=== PATIENT | male | born 1965 | race Caucasian/White ===

== ENCOUNTER 2018-05-25 10:39 | Inpatient (IN) ==
--- NOTE | 2018-05-25 07:34 | Anesthesia Evaluation PreOp ---
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 History: Other (anxiety/depression, substance abuse, chronic pain) Other Medical History: Denies Any Significant HX Anesthesia History: No Prior Anesthetic Complications, Past Anesthesia (B/L shoulder, c-fusion, varicocelectomy) Alcohol Use: occasionally Drug use: marijuana (daily), prescription drug abuse Medications and Allergies Gabapentin [Neurontin] 600 mg PO HS 05/07/16 [History] Gabapentin [Neurontin] 600 mg PO 05/25/18 [History] Nabumetone [Relafen] 05/25/18 [History] Omeprazole [PriLOSEC] 05/25/18 [History] 3 Allergy/AdvReac Type Severity Reaction Status Date / Time No Known Allergies Allergy Verified 05/25/18 11:33 - Meds/Allergy Pre-op Review Medications Reviewed: Yes Allergies Reviewed: Yes Beta Blockers on Current Med List: No Anesthesia Results - Labs Laboratory Tests 05/22/18 12:30 Hgb 14.0 Hct 39.1 Plt Count 195 - Imaging EKG: report reviewed (SINUS RHYTHM wnl) Additional studies: sleep study: IMPRESSION: 1. No primary sleep pathology identified. 2. Few respiratory events noted, not clinically significant. 3. Normal sleep efficiency. 4. Shortened sleep onset latency with prolonged REM sleep latency. Anesthesia Exam Selected Entries 05/25/18 11:04 Temperature 98.7 F Pulse Rate 101 Respiratory Rate 18 Blood Pressure 137/91 O2 Sat by Pulse Oximetry 97 Weight: 79kg NPO (# of Hours): 8 - HEENT Pupil (Motor): EOMI Mallampati: II Teeth: Normal Oral Opening: Greater than 3 - GRANULAR OPERATOR LOC: Oriented GRANULAR OPERATOR Motor: Normal RUE, Normal LUE, Normal RLE, Normal LLE, Normal Face GRANULAR OPERATOR Sensory: Normal: RUE, LUE, RLE, LLE, Face - Cardiac Rhythm: Regular Murmur: None - Pulmonary Breath Sounds: bilateral Clear Respiratory Effort: Symmetrical Anesthesia Assess/Plan ASA Score: 3 Modified [place] Scale for Level of Consciousness: Cooperative, oriented, and tranquil Anesthetic Plan: General Monitoring Plan: Standard Monitors Recovery Plan: PACU (agrees to GA)
[2018-05-25] MEDS ORDERED: Albuterol 2.5 MG/3 ML NEBULIZER IH ONE (10:55)
[2018-05-25] MEDS ORDERED: CeFAZolin Syr 2,000MG/20 ML 2,000 MG/20 ML SYRINGE IVPB ONE (10:55)
[2018-05-25] MEDS ORDERED: Albuterol 2.5 MG/3 ML NEBULIZER ONE (10:59)
[2018-05-25] MEDS ORDERED: Ringers Solution, Lactated 1,000 ML IVC SCH (11:00)
--- NOTE | 2018-05-25 11:52 | History & Physical Report ---
Date of Encounter: 05/25/18 Time of Encounter: 11:50 24 Hour HP Update - Instructions Instructions: If the History and Physical is less than 30 days old and was completed prior to A.M. admission and or procedure and has NOT been updated on calendar day of procedure please complete this update prior to performing procedure. - Update Patient reports changes in Medical Condition: No Changes in examination, assessment, or condition: No Changes in Medication: No Preop tests/diagnostics Reviewed: Yes Surgery Remains Indicated: Yes Consent for Planned Operative Procedure(s) Verified: Yes - Pre-Operative Checklist Preoperative Checklist Indicated: Yes Prophylactic Antibiotic Ordered: Yes Home Medications Include Beta Brianna: No Is VTE Prophylaxis Indicated?: Yes
[2018-05-25] MEDS ORDERED: Acetaminophen IV 1,000 MG/100 ML INFUS..BTL ONE (12:13)
[2018-05-25] MEDS ORDERED: *HR* Midazolam HCl 2 MG/2 ML VIAL ONE ×3 (12:25→13:14)
[2018-05-25] MEDS ORDERED: CefOXitin 1,000 MG VIAL ONE ×2 (12:26→12:30)
[2018-05-25] MEDS ORDERED: *HR* PHENYLEPHRINE 1,000 MCG/10 ML SYRINGE IVP ONE (13:06)
[2018-05-25] MEDS ORDERED: Neostigmine Methylsulfate 3 MG/3 ML SYRINGE ONE (13:11)
[2018-05-25] MEDS ORDERED: *HR* FentaNYL (PF) 100 MCG/2 ML VIAL ONE ×2 (13:14→14:06)
[2018-05-25] MEDS ORDERED: *HR* Propofol 200 MG/20 ML VIAL IVP ONE (13:14)
[2018-05-25] MEDS ORDERED: Dexamethasone 4 MG/ML VIAL ONE (13:14)
[2018-05-25] MEDS ORDERED: *HR* Rocuronium Bromide 50 MG/5 ML VIAL ONE (13:14)
[2018-05-25] MEDS ORDERED: Lidocaine -MPF 2% 2 ML VIAL ONE (13:14)
[2018-05-25] MEDS ORDERED: Ondansetron 4 MG/2 ML VIAL ONE (13:14)
[2018-05-25] MEDS ORDERED: Lidocaine -MPF 4% 5 ML AMPUL ONE (13:14)
[2018-05-25] MEDS ORDERED: Esmolol 100 MG/10 ML VIAL IVP ONE (13:14)
[2018-05-25] MEDS ORDERED: *HR* Phenylephrine 10 MG/ML VIAL ONE (13:22)
[2018-05-25] MEDS ORDERED: *HR* Promethazine 25 MG/ML VIAL IVP PRN (13:24)
[2018-05-25] MEDS ORDERED: *HR* OxyCODONE Immed Rel 5 MG TABLET PO PRN (13:24)
[2018-05-25] MEDS ORDERED: *HR* Labetalol 20 MG/4 ML SYRINGE IVP PRN (13:24)
--- NOTE | 2018-05-25 14:18 | Operative Note ---
Date of procedure: 05/25/18 Pre-op diagnosis: Hiatal hernia and reflux esophagitis Post-op diagnosis: same Procedure: Laparoscopic Merissa fundoplication and hiatal hernia repair Anesthesia: CATHERINE Surgeon: Beau Arnold Was there an assistant warehouse manager present: Yes Piece Work Inspector: Nicole Mckeon Estimated blood loss (cc): 10 Specimen: none Condition: stable Disposition: PACU Procedure in Detail: After informed consent the patients taking major operative suite supine position and given general endotracheal the abdomen is prepped and draped in sterile fashion utilizing ChloraPrep standard draping techniques. The patient was placed in timeout was taken and the patient is identified. Made an incision above the umbilicus and dissected down the level of fascia. 2-0 Vicryl traction stitches were placed. The abdomen was entered visually. I placed a Houser trocar. The abdomen was insufflated to 15 mmHg pressure CO2. I placed a 12 trocar in the right flank. A Retractor was placed under the left lobe of liver. This was held in place with a retractor clamp. 11 trochars placed in the right subxiphoid and a 5 mm trocar left subxiphoid and a 11 trocar in the left subcostal area. The stomach was grasped and retracted downward the left. Using a lighted bougie to assist in the dissection I was able to accurately identify the right and left crura of the diaphragm and the esophagus. The lesser omentum was divided. The stomach was then retracted downward and to the right. I divided the short gastrics between the cardia and the spleen using 10 mm clips and Harmonic scalpel. This gave complete mobilization of cardia of the stomach. I was able to identify the left crura from the left side. I then placed a [place] drain around the gastroesophageal junction and performed hiatal hernia repair with 3 stitches of 0 Ethibond this gave an excellent technical result. Tension on the esophagus. The cardia was then brought behind the gastroesophageal junction and Merissa fundoplication was created with 3 stitches of 0 Ethibond. This gave an excellent technical result. The bougie was removed. There was 10 mL of bleeding total. All trochars were removed. Fascia was closed with 0 Vicryl. Skin was closed with 2 -0 Vicryl and 4-0 Vicryl.
[2018-05-25] MEDS ORDERED: *HR* Metoprolol 5 MG/5 ML VIAL IVP PRN ×2 (14:19→15:17)
[2018-05-25] MEDS ORDERED: *HR* OxyCODONE/APAP 5/325 TABLET PO PRN (14:19)
[2018-05-25] MEDS ORDERED: Ondansetron 4 MG/2 ML VIAL IVP PRN ×2 (14:19→15:17)
[2018-05-25] MEDS ORDERED: OXYCODONE Oral CONC 10 MG/0.5 ML ORAL.SYG SL PRN (14:19)
[2018-05-25] MEDS ORDERED: 0.9 % Sodium Chloride 1,000 ML IVC SCH (14:30)
[2018-05-25] MEDS: OXYCODONE Oral CONC 10 MG/0.5 ML ORAL.SYG SL PRN (15:29)
--- NOTE | 2018-05-25 15:37 | Anesthesia Evaluation Post Op ---
Date of Encounter: 05/25/18 Time of Encounter: 15:00 - Vital Signs Vital Signs: Vital Signs/O2 Sat, Most Current Temp Pulse Resp BP Pulse Ox 98.8 F 90 18 118/77 95 05/25/18 14:55 05/25/18 14:55 05/25/18 14:55 05/25/18 14:55 05/25/18 14:55 - Lungs Lungs: Clear Ascult./Percussion - Airway Airway: Non-obstructed - Cardiovascular Regular Rate - Mental Status Mental Status: Alert & Oriented, Answers Appropriately - Pain Pain Scale: 7 Pain Scale used: Numeric (1 - 10) - Nausea Vomiting Nausea Vomiting: Not Present - Hydration Hydration: Ice chips, Has not voided - Discharge PostOp Status: Transfer Patient to floor
[2018-05-25] MEDS: 0.9 % Sodium Chloride 1,000 ML IVC SCH ×2 (15:50→21:23)
[2018-05-25] MEDS ORDERED: *HR* Morphine 2 MG/ML SYRINGE IVP ONE ×2 (15:56→16:45)
--- NOTE | 2018-05-25 16:02 | Event Note ---
Date of Encounter: 05/25/18 Time of Encounter: 16:00 Patient is s/p Laparoscopic Merissa Fundoplication and Hiatal Hernia repair with Dr. Arnold today. I was called to evaluate the patient due to complaints of chest pain. The patient reports chest pain radiating into his shoulders which is a 10 out of 10. He has never experienced pain like this before. Medication (oxycodone ) has not relieved the pain at this point. The pain is worse with deep breathing. He denies any difficulty with swallowing. EKG has been reviewed and shows NSR. Vital signs are stable. Will complete chest x-ray. Morphine ordered 2mg IV X 1 as well as toradol. Will continue to monitor and assess patient progress.
[2018-05-25] MEDS ORDERED: Simethicone 80 MG TAB.CHEW PO PRN (16:06)
[2018-05-25] MEDS ORDERED: Naloxone 0.4 MG/ML INJ IVP PRN (16:07)
[2018-05-25] MEDS: Ketorolac 15 MG/ML VIAL IVP SCH (16:44)
[2018-05-25] MEDS: *HR* OxyCODONE/APAP 5/325 TABLET PO PRN (18:36)
[2018-05-25] MEDS ORDERED: Gabapentin 300 MG CAPSULE PO SCH (21:00)
[2018-05-26] MEDS: Ketorolac 15 MG/ML VIAL IVP SCH ×2 (00:01→08:47)
[2018-05-26] MEDS: OXYCODONE Oral CONC 10 MG/0.5 ML ORAL.SYG SL PRN ×2 (01:37→08:58)
[2018-05-26 07:04] VITALS: BP 157/95
[2018-05-26] MEDS: 0.9 % Sodium Chloride 1,000 ML IVC SCH (09:08)
--- NOTE | 2018-05-26 09:45 | Discharge Summary ---
<Farhana Dominique - Last Filed: 05/26/18 09:43> Date of Encounter: 05/26/18 Time of Encounter: 09:45 - Discharge Diagnosis (1) Hiatal hernia Priority: Primary Status: Acute (2) GERD (gastroesophageal reflux disease) Priority: Primary Status: Acute Qualifiers: Esophagitis presence: esophagitis presence not specified Qualified Code(s) : K21.9 - Gastro-esophageal reflux disease without esophagitis General Surgery Exam Initial Vital Signs Temp Pulse Resp BP Pulse Ox 98.7 F 101 18 137/91 97 05/25/18 11:04 05/25/18 11:04 05/25/18 11:04 05/25/18 11:04 05/25/18 11:04 - General physical appearance well developed, well nourished, no distress - Eyes normal ocular movement - ENT normal mucosa, atraumatic, normocephalic - Neck trachea midline - Respiratory normal respiratory effort, clear to auscultation - Cardiovascular Cardiovascular exam: Present: RRR - Abdomen Abdomen general surgery: Present: bowel sounds present, soft, tender (Expected postoperative tenderness) - Incision Incision: Present: clean and dry, intact - Integumentary Integumentary general surgery: Present: warm and dry - Neurologic Present: CN 2-12 grossly intact - Psychiatric Psychiatric general surgery: Present: appropriate, oriented to person, oriented to place, oriented to time, speech is normal, memory intact - Hospital Course Hospital course: Mr. Huang is a 52 year old male with a past medical history significant for gastroesophageal reflux disease and hiatal hernia. The patient is status post a laparoscopic hiatal hernia repair and Merissa fundoplication with Dr. Arnold. On postoperative day #1, he is doing very well. His vital signs are stable he is afebrile. He is tolerating liquids without nausea or vomiting. His postoperative pain is controlled. He is ambulating and voiding without difficulty. We will begin discharge planning to home and plan for outpatient follow-up in the next 10-14 days. - Time Spent with Patient Total time spent providing and/or coordinating discharge services: Less than 30 minutes - Discharge Medications Prescriptions: Ondansetron ODT [Zofran ODT] 4 mg SL Q6HR PRN #30 tab.rapdis PRN Reason: Nausea Docusate [Colace] 100 mg PO BID PRN #30 capsule PRN Reason: Constipation Ibuprofen [Ibu] 800 mg PO Q8H #50 tablet OxyCODONE/APAP 5/325 [Percocet 5/325 MG] 1 each PO Q6H PRN 7 Days #28 tablet PRN Reason: Pain Home Medications: Folic Acid/Multivit-Min/Lutein [Cvs Spectravite Adult Tab Chew] 1 each PO DAILY 05/25/18 [History] Gabapentin [Neurontin] 600 mg PO HS 05/25/18 [History] Lisinopril [Zestril] 10 mg PO DAILY 05/25/18 [History] Nabumetone [Relafen] 500 - 1,000 mg PO BID PRN 05/25/18 [History] Omeprazole [PriLOSEC] 40 mg PO DAILY 05/25/18 [History] Docusate [Colace] 100 mg PO BID PRN #30 capsule 05/26/18 [Rx] Ibuprofen [Ibu] 800 mg PO Q8H #50 tablet 05/26/18 [Rx] Ondansetron ODT [Zofran ODT] 4 mg SL Q6HR PRN #30 tab.rapdis 05/26/18 [Rx] OxyCODONE/APAP 5/325 [Percocet 5/325 MG] 1 each PO Q6H PRN 7 Days #28 tablet 01/06 [Rx] Allergies/Adverse Reactions: 3 Allergy/AdvReac Type Severity Reaction Status Date / Time No Known Allergies Allergy Verified 05/25/18 11:33 Primary care physician: Esteban Garrett MD Discharging clinician: Beau Arnold (Devin Dominique) Anticipated date of discharge: 05/26/18 - Impressions ITS Impressions Chest X-Ray 05/25/18 15:24 IMPRESSION: No acute cardiopulmonary disease. D/ / Faye Hernandez MD / Faye Hernandez MD Interpreting Provider: Faye Hernandez MD - Patient Status Disposition: Home, Self-Care Condition: Good Functional capacity at discharge: independent ambulation Overall status at discharge: patient is progressing back to baseline - Discharge Instructions Instructions: Hiatal Hernia (GEN), Gastroesophageal Reflux Disease (GEN) Follow Up With: Beau Arnold MD [Partnered Physician] - 06/09/18 11:10 am Esteban Garrett MD [Primary Care Provider] - Additional Instructions: Sana Surgical Diet After Merissa Fundoplication Surgery This diet information is for patients who have recently had Merissa Fundoplication Surgery to correct reflux disease or to repair various types of hernias, such as hiatal hernia and intrathoracic stomach. This diet may also be used for other gastrointestinal surgeries, such as Heller myotomy and repair of achalasia. The diet will help control diarrhea, excess gas and swallowing problems, which may occur after this type of surgery. Important Steps to Keep Your Stomach From Stretching Eat small, frequent meals (six to eight per day). This will help you consume the majority of the nutrients you need without causing your stomach to feel full or distended. Drinking large amounts of fluids with meals can stretch your stomach. You may drink fluids between meals as often as you like, but limit fluids to 1/2 cup (4 fluid ounces) with meals and one cup (8 fluid ounces) with snacks. Sit upright while eating and stay upright for 30 minutes after each meal. [place] can help food move through your digestive tract. Do not lie down after eating. Sit upright for 2 hours after your last meal or snack of the day. Eat very slowly. Take your time when eating. Take small bites and chew your food well to cement mason helper in swallowing and digestion. Avoid crusty breads and sticky, gummy foods, such as bananas, fresh doughy breads, rolls and doughnuts. These types of foods become sticky and difficult to swallow. Toasted breads tend to be better tolerated. Lastly, if you eat sweets, consume them at the end of your meal to avoid a group of symptoms referred to as dumping syndrome. This describes the rapid emptying of foods from the stomach to the small intestine. Sweetened beverages, candy and desserts move more rapidly and dump quickly into the intestines. This can cause symptoms of nausea, weakness, cold sweats, cramps, diarrhea and dizzy spells. Important Steps to Avoid Gas Do not drink through a straw, chew gum, or chew tobacco. These actions cause you to swallow air, which will produce excess gas in your stomach. Chew with your mouth closed and chew your food thoroughly. Avoid foods that cause stomach gas and distention. The foods include corn, dried beans, peas, lentils, onions, broccoli, cauliflower, and any food item from the cabbage family. Do not drink carbonated drinks, alcohol, citrus, or tomato products. What Will I Be Able To Eat and Drink After Surgery After Merissa Fundoplication Surgery, your diet will be advanced slowly by your surgeon. Generally, you will be on a thin/clear liquid diet for the first 10 days. Then you will advance to the full liquid diet for 4 days and eventually to a Merissa soft diet for 7 days. After any surgery, protein consumption is important for healing. To get enough protein, drink 3-4 [place] Instant Breakfast, Ensure, or equivalent daily. Reminder: carbonated beverages (such as sodas, energy drinks, flavored carbonated water), and alcohol are not permitted for the 1st 6 to 8 weeks after surgery. After this time you may attempt to reintroduce them in small amounts. Please note: dairy products such as milk, ice cream, and putting may cause diarrhea and some people after surgery. He may need to avoid milk products. If so you may substitute them with lactose free beverages, such as soy, rice, lactate, or almond milk. Please be aware that each patient's tolerance to food is different. Your doctor will advance your diet depending on how well you progress after surgery. Thin Liquid Diet The first diet after Merissa Fundoplication Surgery is the thin liquids diet. Follow this diet for postoperative days 1-10 05/26/2018 - 06/04/2018. Thin liquids include: Apple, Cranberry, or Grape Juice (no citrus juice) Chicken Broth Beef Broth Flavored Gelatin (Jell-O) Decaffeinated Tea or Coffee Popsicles or [place] Ice Caffeinated Beverages Will Be Permitted Based upon Tolerance Dairy Thin Milkshakes (strawberry or vanilla flavored- No chocolate) Drink 3-4 [place] instant breakfast, Ensure, or equivalent daily. May be mixed with dairy for thin milkshakes Full Liquid Diet Follow this diet for postoperative days 11-14 06/05/2018- 06/08/2018. Full liquid diet includes anything in the thin liquid diet plus: Milk, Soy, Rice, and [place] (No Chocolate) Cream of Wheat, Cream of Rice, Grits Strained Creamed Soups (No Tomato Water Broccoli) Vanilla and [place] Flavored Ice Cream Sherbet Vanilla and Butterscotch Pudding (No Chocolate or Coconut) Continue 3-4 [place] Instant Breakfast, Ensure, or an Equivalent Daily. Maybe Next with Dairy for Thin Milkshakes. Merissa Soft Diet Follow this diet for postoperative days 15-20 06/09/2018- 06/14/2018. (If you are consuming enough protein, you may stop the protein supplements). General Surgical Discharge Instructions 1. No pushing, pulling, or lifting greater than 15 lbs for 4 weeks 2. You may shower beginning today, but no tub baths, soaking, or swimming for 2 weeks. 3. You may resume driving when you are off narcotics and are safe to react in a car. 4. Take ibuprofen every 8 hours for discomfort. If this does not relieve discomfort, you may take the as needed Percocet. Take narcotics as directed. Do not take more narcotics then directed and do not share your narcotics with any other person. Do not drink alcohol while on narcotics. 5. Take stool softeners (Colace) or a water based laxative (Miralax) while taking narcotics. You may hold for loose stools. 6. Report any fevers greater than 100.5F, increase abdominal discomfort, drainage that looks like pus, increased redness or pain at the surgical site, or any vomiting. 7. Report any pain in the calves, shortness of breath, or rapid heartbeat. 8. Follow-up in the office as directed. - Diet and Activity Activity: other (See additional instructions above) Diet: other (See Merissa Fundoplication diet) - Attending Attestation For this encounter, I have reviewed the EYELET PUNCH OPERATOR or PA documentation, treatment plan, and medical decision making; and I have had face to face time with this patient. <Beau Arnold - Last Filed: 05/30/18 14:34> Date of Encounter: 05/26/18 General Surgery Exam Initial Vital Signs Temp Pulse Resp BP Pulse Ox 98.7 F 101 18 137/91 97 05/25/18 11:04 05/25/18 11:04 05/25/18 11:04 05/25/18 11:04 05/25/18 11:04 - Hospital Course Hospital course: Mr. Huang is a 52 year old male - Time Spent with Patient Total time spent providing and/or coordinating discharge services: Date of admission: 05/26/18 09:20 Primary care physician: Esteban Garrett MD - Impressions ITS Impressions Chest X-Ray 05/25/18 15:24 IMPRESSION: No acute cardiopulmonary disease. D/ / Faye Hernandez MD / Faye Hernandez MD Interpreting Provider: Faye Hernandez MD - Attending Attestation The patient is seen and evaluated on morning rounds with the resident and the medical student in the findings discussed with the clinical nurse practitioner The patient has had open repair of paraesophageal hernia. He is highly motivated to go home today is tolerating clear liquids. Beau Arnold MD FACS
[2018-05-26] MEDS: *HR* OxyCODONE/APAP 5/325 TABLET PO PRN (10:17)
--- NOTE | 2018-05-29 15:48 | Electrocardiograph Report ---
[address] [address] Test Date: 2018-05-25 Pat Name: Yannick Huang Department: 115 Room: 3A22 Gender: M Band Sawyer: NATIVIDAD : 1965 Requested By: Soha Pugh Order Number: [id number] Reading MD: Hamilton Chiu Measurements Intervals [place] Rate: 102 P: 54 TX: 160 QRS: 17 QRSD: 96 T: 50 QT: 325 QTc: 384 Interpretive Statements SINUS TACHYCARDIA Electronically Signed On 05-29-2018 15:47:22 EDT by Hamilton Chiu
== END 2018-05-26 11:40 | disposition home or self-care (01) | DRG 220 ==
LOC: SAMDAY 10:39 → 3ANU 15:16
PROVIDERS: ADMIT Surgery; ATTEND Surgery

== ENCOUNTER 2018-06-10 14:24 | Observation (INO) ==
[2018-06-10] MEDS ORDERED: 0.9 % Sodium Chloride 1,000 ML IVC ONE (14:33)
[2018-06-10] MEDS ORDERED: Ondansetron 4 MG/2 ML VIAL IVP ONE (14:33)
--- NOTE | 2018-06-10 14:39 | Emergency Department Note ---
Disposition Clinical Impression: Alcohol withdrawal Qualifiers: Complication of substance-induced condition: with perceptual disturbance Qualified Code(s): F10.232 - Alcohol dependence with withdrawal with perceptual disturbance Disposition: Admitted As Inpatient Time of Disposition: 16:14 General Adult HPI - General Chief complaint: ED Abdominal Pain Stated complaint: poss dt? Time Seen by Provider: 06/10/18 14:27 Source: patient, EMS Mode of arrival: EMS Limitations: no limitations Nursing Notes Reviewed: Yes Vital Signs Reviewed: Yes - History of Present Illness HPI Narrative: 52-year-old male previous alcoholic arrives to the emergency department with complaint of feeling ill, purpuric rash as well as abdominal pain. The patient states that he has been unable to keep any fluids down over the past 2 days secondary to the way he is feeling. The patient states he also is worried that he is going through delirium tremens as does the surgeon who performed her surgery. The patient was seen a few days ago for similar complaint with the concern for delirium tremens. He was put on "some medications" and discharged home. The patient has not been able to keep down. The patient arrives to the emergency department in no acute distress but is very uncomfortable on examination. The patient states his last alcoholic sip was 5 days ago. He denies any other alcohol use since then. Patient is not tachycardic, not hyper oh or hypertensive, and the patient is afebrile. The patient is a large amount of tenderness to his abdomen. Surgical scars are well healing. - Related Data Home Medications Medication Instructions Recorded Confirmed Folic Acid/Multivit-Min/Lutein 1 each PO DAILY 05/25/18 06/10/18 [[facility] Spectravite Adult Tab Chew] Gabapentin [Neurontin] 600 mg PO HS 05/25/18 06/10/18 Nabumetone [Relafen] 500 - 1,000 mg PO BID PRN 05/25/18 06/10/18 Omeprazole [PriLOSEC] 40 mg PO DAILY 05/25/18 06/10/18 Albuterol Sulfate [Proair Hfa] 2 puff IH Q4H PRN 06/10/18 06/10/18 Atenolol [Tenormin] 50 mg PO DAILY 06/10/18 06/10/18 Chlordiazepoxide [Librium] 25 mg PO TID 10/20/18 10/20/18 Lisinopril [Zestril] 20 mg PO DAILY 06/10/18 06/10/18 Previous Rx's Medication Instructions Recorded Docusate [Colace] 100 mg PO BID PRN #30 capsule 05/26/18 OxyCODONE/APAP 5/325 [Percocet 1 each PO Q6H PRN 7 Days #28 tablet 05/26/18 5/325 MG] DiphenhydraMINE [Benadryl] 25 mg PO Q8HR #20 capsule 06/08/18 predniSONE [Prednisone] 50 mg PO DAILY #5 tablet 06/08/18 Allergies Allergy/AdvReac Type Severity Reaction Status Date / Time No Known Allergies Allergy Verified 06/10/18 16:40 All systems ED: reviewed and negative except as stated. Constitutional: Reports: weakness, weight change. Denies: fever, chills ENT ED: Reports: dysphagia. Denies: throat pain, congestion Cardiovascular: Denies: chest pain, dyspnea on exertion, edema Respiratory: Denies: cough, dyspnea, sputum production Gastrointestinal: Reports: abdominal pain, nausea, vomiting. Denies: diarrhea, constipation, hematemesis, melena, hematochezia Genitourinary: Denies: urgency, dysuria Musculoskeletal: Denies: back pain Integumentary: Reports: rash Neurological: Reports: weakness. Denies: headache, numbness, paresthesias, confusion Psychiatric: Reports: anxiety Past Medical History - Past Medical History Attestation: Yes The following information was validated with the patient. Source: patient, old records reviewed Medical history: Reports: cancer, COPD, GERD, hyperlipidemia, hypertension Surgical history: Reports: other Psychiatric history: Reports: anxiety, depression, PTSD - Social History Smoking Status: Current every day smoker Smokeless Tobacco Status: No Alcohol use: Reports: occasionally Drug use: Reports: marijuana, prescription drug abuse Physical Exam - General Limitations: no limitations General appearance: alert, in no apparent distress - Head Head exam: atraumatic, normocephalic, normal inspection - Eye Eye exam: Present: normal appearance - ENT ENT exam: normal exam, normal oropharynx, mucous membranes moist - Neck Neck exam: Present: normal inspection, full ROM, trachea midline - Chest Chest inspection: Present: normal inspection, symmetric chest wall rise - Respiratory Respiratory exam: Present: normal lung sounds bilaterally - Cardiovascular Cardiovascular exam: Present: regular rate, normal rhythm, normal heart sounds - Abdominal Exam Abdominal exam: Present: soft, tenderness (diffuse), incision (intact, no erythema or discharge). Absent: distention, guarding, rebound, rigidity, pulsatile mass - Extremities Exam Extremities exam: Present: normal inspection, full ROM. Absent: tenderness, pedal edema - Neurological Exam Neurological exam: Present: alert, oriented X3, CN II-XII intact - Expanded Neurological Exam Patient oriented to: Present: person, place, time Speech: Present: fluid speech Cranial nerves: EOM function (II, III, IV, ): Normal, facial sensation (V): Normal, facial palsy (VII): Normal Motor strength - LUE: 5/5 Motor strength - RUE: 5/5 Motor strength - LLE: 5/5 Motor strength - RLE: 5/5 Coma Scale Eye Opening: Spontaneous Coma Scale Motor Response: Obeys Commands Coma Scale Verbal Response: Oriented Coma Scale Total: 15 - Psychiatric Psychiatric exam: Present: anxious - Skin Skin exam: Present: warm, dry, intact, normal color, rash (Purpuric rash to b/l UE and trunk) Course Vital Signs Temperature 98.6 F 06/10/18 14:30 Pulse Rate 73 06/10/18 14:30 Respiratory Rate 20 06/10/18 14:30 Blood Pressure 134/93 06/10/18 14:30 O2 Sat by Pulse Oximetry 100 06/10/18 14:30 Temperature 98.6 F 06/10/18 14:30 Pulse Rate 65 06/10/18 15:56 Respiratory Rate 16 06/10/18 15:56 Blood Pressure 112/77 06/10/18 15:56 O2 Sat by Pulse Oximetry 98 06/10/18 15:56 Oxygen Delivery Oxygen Delivery Room Air Medical Decision Making - [facility] Narrative Medical decision making narrative: Patient's workup in the emergency department demonstrates no acute process. Patient is likely having alcohol withdrawals. Upon further history taking despite the patient telling me that his last alcoholic beverages 5 days ago, the patient admits to drinking 6 beers 3 days ago. The patient was given Valium here in the emergency department it is resting comfortably at this time. Patient will be admitted to the hospital for alcohol withdrawal and monitoring given the patient's failure of Librium and metoprolol at outpatient setting. No further questions or concerns noted at this time. Accepted by Dr. Rivas. - Lab Data Lab results reviewed: Yes I reviewed the patient's lab results. Result diagrams: 06/10/18 14:55 06/10/18 14:35 Lab Results 06/10/18 06/10/18 06/10/18 Range/Units 14:35 14:55 14:55 WBC 18.1 H (4.3-11.1) K/mcL RBC 4.94 (4.19-5.50) M/mcL Hgb 16.8 (12.9-16.9) g/dL Hct 47.7 (37.5-50.1) % MCV 96.6 (83.0-100.0) fL MCH 34.0 H (28.0-33.3) pg MCHC 35.2 (31.6-35.5) g/dL RDW 11.9 (11.5-14.5) % Plt Count 428 H (140-400) K/mcL MPV 9.7 (9.4-12.4) fL Immature Gran % 0.5 (0-4) % Seg Neutrophils % 83.2 % Lymphocytes % 11.8 % Monocytes % 4.2 % Eosinophils % 0.2 % Basophils % 0.1 % Neutrophils # 15.1 H (1.6-8.9) K/mcL Lymphocytes # 2.1 (0.6-4.6) K/mcL Monocytes # 0.8 (0.0-1.3) K/mcL Eosinophils # 0.0 (0.0-0.6) K/mcL Basophils # 0.0 (0.0-0.2) K/mcL PT 11.1 (9.4-12.1) Seconds INR 1.0 Sodium 138 (136-145) mEq/L Potassium 3.8 (3.5-5.1) mEq/L Chloride 101 (98-107) mEq/L Carbon Dioxide 25 (23-29) mEq/L BUN 15 (6-20) mg/dL Creatinine 1.03 (0.70-1.30) mg/dL Est GFR ( Amer) > 60 (> 60) Est GFR (Non-Af Amer) > 60 (> 60) BUN/Creatinine Ratio 15 (6-26) Glucose 145 H (70-105) mg/dL Calculated Osmolality 289 (280-300) Calcium 10.4 H (8.6-10.3) mg/dL Total Bilirubin 0.7 (0.3-1.0) mg/dL AST 23 (13-39) Units/L ALT 18 (7-52) Units/L Alkaline Phosphatase 103 (34-104) Units/L Serum Total Protein 7.2 (6.4-8.9) g/dL Albumin 4.5 (3.5-5.7) g/dL Globulin 2.7 (2.4-3.5) g/dL Albumin/Globulin Ratio 1.7 (1.1-2.2) Lipase 40 (11-82) Units/L - Radiology Data Radiology results reviewed: Yes I reviewed the patient's radiology results. Abdomen/Pelvis CT 06/10/18 14:32 IMPRESSION: 1. Postsurgical changes from fundoplication. 2. No acute abnormality within the chest, abdomen, or pelvis. D/ / Mu Khoury MD / Mu Khoury MD Interpreting Provider: Mu Khoury MD Chest CT 06/10/18 14:33 IMPRESSION: 1. Postsurgical changes from fundoplication. 2. No acute abnormality within the chest, abdomen, or pelvis. D/ / Mu Khoury MD / Mu Khoury MD Interpreting Provider: Mu Khoury MD - EKG Data EKG #1 EKG attestation: Yes I reviewed and interpreted this EKG. EKG results narrative: Heart rate 66 beats for minute. Normal sinus rhythm. No ST elevation or ST depression noted. No acute changes noted. Attestation Statement - Attestation Attestation: I, Freddy Sanders, examined this patient and my medical decision-making was reviewed with the TENTER FEEDER/PA/Advanced Practice Nurse/Resident Physician. I agree with the documented findings, disposition and treatment plan as described except to the extent set forth below. 52-year-old male presents emergency Department with concerns of possible EtOH withdrawal. Patient states he had a recent hiatal hernia repair with diaphragmatic reconstruction by Dr. Cook. Dr. Cook at strongly recommended that he not drink alcohol anymore. He started to go through severe withdrawal's on his reevaluation by Dr. Cook he was given Librium and metoprolol which have helped his symptoms however he still is symptomatic with intense pruritus and tremors. He is not tachycardic or hypertensive on her evaluation emergency department however this is likely secondary to his Librium and metoprolol. Patient denies fever, chills, chest pain, shortness of breath. Patient felt comfortable to be admitted to the hospital for further care and evaluation
[2018-06-10 15:06] LABS: Alanine Aminotransferase 18 Units/L (7-52); Albumin 4.5 g/dL (3.5-5.7); Albumin/Globulin Ratio 1.7 (1.1-2.2); Alkaline Phosphatase 103 Units/L (34-104); Aspartate Amino Transferase 23 Units/L (13-39); BUN/Creatinine Ratio 15 (6-26); Bilirubin,Total 0.7 mg/dL (0.3-1.0); Blood Urea Nitrogen 15 mg/dL (6-20); Calcium 10.4 mg/dL (8.6-10.3); Carbon Dioxide 25 mEq/L (23-29); Chloride 101 mEq/L (98-107); Globulin 2.7 g/dL (2.4-3.5); Glucose 145 mg/dL (70-105); Osmolality,Calculated 289 (280-300); Potassium 3.8 mEq/L (3.5-5.1); Sodium 138 mEq/L (136-145); Total Protein 7.2 g/dL (6.4-8.9); eGFR For Non-African Americans > 60 (> 60)
[2018-06-10] MEDS ORDERED: *HR* LORazepam 2 MG/ML VIAL IVP ONE (15:30)
[2018-06-10 15:31] LABS: Basophils % 0.1 %; Eosinophils % 0.2 %; Hematocrit 47.7 % (37.5-50.1); Hemoglobin 16.8 g/dL (12.9-16.9); Immature Granulocytes % 0.5 % (0-4); Lymphocytes # 2.1 K/mcL (0.6-4.6); Lymphocytes % 11.8 %; Mean Corpuscular HGB Conc 35.2 g/dL (31.6-35.5); Mean Corpuscular Volume 96.6 fL (83.0-100.0); Mean Platelet Volume 9.7 fL (9.4-12.4); Monocytes # 0.8 K/mcL (0.0-1.3); Monocytes % 4.2 %; Neutrophils # 15.1 K/mcL (1.6-8.9); Platelet Count 428 K/mcL (140-400); Red Blood Count 4.94 M/mcL (4.19-5.50); Red Cell Distribution Width 11.9 % (11.5-14.5); Segmented Neutrophils % 83.2 %
[2018-06-10 15:40] LABS: Prothrombin Time 11.1 Seconds (9.4-12.1)
[2018-06-10 15:59] LABS: Lipase 40 Units/L (11-82)
[2018-06-10] MEDS ORDERED: Naloxone 0.4 MG/ML INJ IVP PRN (16:19)
[2018-06-10] MEDS ORDERED: diazePAM 10 MG/2 ML SYRINGE IVP PRN (16:22)
[2018-06-10] MEDS ORDERED: MVI, adult with vitamin K 10 ML in 0.9 % Sodium Chloride 1,000 ML IVC ONE (16:23)
[2018-06-10 16:46] LABS: Magnesium 1.8 mg/dL (1.6-2.6); Phosphorous 3.9 mg/dL (2.7-4.5)
[2018-06-10] MEDS ORDERED: cefTRIAXone 1,000 MG in Water for inj. (sterile) 20 ML 10 ML IVP SCH (17:00)
[2018-06-10] MEDS: Thiamine (B-1) 100 MG TABLET PO SCH (18:10)
--- NOTE | 2018-06-10 18:36 | Internal Med History&Physical ---
Addendum entered and electronically signed by Eva Soto CNP 06/10/18 19:12: Addendum entered and electronically signed by Julián Noel MD 19:04: Patient seen and evaluated at bedside. Patient reports itching and a rash after starting a new medication. also report dysphagia. And resting and intentional tremors. Physical Exam: General: AOx4. Mild distress due to itching, plus tremors, dysphagia Skin: generalized urticaria Lungs: CTA b/l, no wheezing, rales or crackles Heart: RRR, normal s1s2, no murmur, rugs or gallops Abd: soft, non tender, NABS extr: strength 5/5 upper and lower extr Neuro: resting and intentional tremors Assessment and plan 1. Alcohol withdrawal 2. Oral thrush 3. Leukocytosis most likely reactive as patient recently started on steroids 4. DVT prophylaxis Plan: started on CIWA/DVT propotocol fluconazole for oral thrush dysphagia screen GI consult to eval for possible condida esophagitis PPI clear liquid diet, advance as tolerated Solu-medrol 40mg/IV daily Diphenhydramine 25mg/IV Q6HR for itching. Heparin 5000 units SuBQ BID for DVT prophylaxis started on low dose carvedilol telemetry monitoring. will hold antibiotics, and monitor Original Note: Date of Encounter: 06/10/18 Time of Encounter: 18:05 Internal Medicine - H&P: HPI Chief complaint: Rash, itching, hives, difficulty with swollawing , Thinks may be in DTs. Admitted From: Emergency Dept Plans for Post Hospital Care: Home History of present illness: Mr. Huang is a 52 year old male whom enters the ED for severe itching, urticaria rash, difficultly swallowing, reports unable to take medications d/t "getting stuck" and "vomiting them back up". Reports rash started 5 days ago after starting tizanadine for back and neck pain and muscle spasms. Reports stopped the medications after 2 days of taking. Reports used Benadryl PO for the rash and puriratic rash w/o relief of s/s . States was seen in ED on T hursday 3 days ago, was given Benadryl IVP , prednisone, Metoprolol, and Librium for what was thought to be DTs . Reports IV Benadryl was non-effective, for the rash, and he has remained unable to swallow his medications. He returned today for the s/s . He is positive for hx of long-time use and abuse of alcohol, and opioid drugs for chronic pain. States that his last drink was 8 beers 4 days ago. Reports that he normally drinks a 12 pack of beer daily for "years". Reports daily use of oxycodone for chronic pain of lower back and neck. Hx of cervical fusion for DDD. Secondary CC of abdominal pain, nausea and vomiting, decreased urinary output d/t not able to drink fluids. Sore throat and dyspagia. Had fundoplication completed for Hiateal hernia on May 25 . States that he lifted a heavy package at his home 6 days ago, and his abdomen has hurt since that time. Reports that he was evaluated per national van truck driver after this this week and was thought to be going through delirium tremens. Patient is interviewed at the bedside and is very uncomfortable scratching his lower legs and feet with his other feet, scratching his arms with hands rubbing arms on sheets and covers. CIWA-AR SCALE 22. Patient is admitted to Observation unit for further evaluation and treatment of alcohol withdrawal, delirium tremens. Past Med Surg Social Fam HX - Past Medical History Source: patient Medical history: cancer, COPD, GERD, hyperlipidemia, hypertension Additional medical history: cervical stenosis, alcoholism Psychiatric history: anxiety, depression, PTSD - Past Surgical History Surgical History: other Additional surgical history: shoulder bicep repair sx, metal in neck, foot sx, hand sx, right knee scope, vericocelectomy, cervical fusion. fundalopacation 1 for hiatal hernia repair - Social History Smoking Status: Current every day smoker Smokeless Tobacco Status: Yes (2ppd) Alcohol use: heavy, recent Drug use: opiates, marijuana, prescription drug abuse Occupational status: unemployed Current living situation: Home - Independent Activity Level: Independent ambulation Recent Out of Country Travel Within the Last 8 Weeks: No Exposure or Possible Exposure to Illness During Travel: No Internal Medicine - H&P: Meds Folic Acid/Multivit-Min/Lutein [[facility] Spectravite Adult Tab Chew] 1 each PO DAILY 05/25/18 [History] Gabapentin [Neurontin] 600 mg PO HS 05/25/18 [History] Nabumetone [Relafen] 500 - 1,000 mg PO BID PRN 05/25/18 [History] Omeprazole [PriLOSEC] 40 mg PO DAILY 05/25/18 [History] Docusate [Colace] 100 mg PO BID PRN #30 capsule 05/26/18 [Rx] OxyCODONE/APAP 5/325 [Percocet 5/325 MG] 1 each PO Q6H PRN 7 Days #28 tablet 05/26/18 [Rx] DiphenhydraMINE [Benadryl] 25 mg PO Q8HR #20 capsule 06/08/18 [Rx] predniSONE [Prednisone] 50 mg PO DAILY #5 tablet 06/08/18 [Rx] Albuterol Sulfate [Proair Hfa] 2 puff IH Q4H PRN 06/10/18 [History] Atenolol [Tenormin] 50 mg PO DAILY 06/10/18 [History] Chlordiazepoxide [Librium] 25 mg PO TID 06/10/18 [History] Lisinopril [Zestril] 20 mg PO DAILY 06/10/18 [History] Allergy/AdvReac Type Severity Reaction Status Date / Time No Known Allergies Allergy Verified 06/10/18 16:40 All Systems PM: A 10-system review of systems was performed and is negative for pertinent findings except as documented above in the HPI. Review of systems: as listed in HPI - Constitutional Additional comments: acutely irritable and uncomfortable d/t puriritac rash and urticaria of torso, upper and lower extremity - EENT Eyes: no change in vision, no discharge, no pain, no photophobia Additional comments: noted mild erythema, and swelling of right Flores - Cardiovascular Cardiovascular ROS IM: no chest pain, no diaphoresis, no dyspnea, no lightheadedness, no palpitations, no syncope - Respiratory Respiratory: no cough, no dyspnea, no wheezing, no excessive phlegm production - Gastrointestinal Gastrointestinal: abdominal pain, belching, dysphagia, nausea, vomiting - Genitourinary Genitourinary ROS male: as per HPI - Musculoskeletal Musculoskeletal ROS IM: no numbness, no tingling - Integumentary Integumentary IM: erythema, rash - Neurological Neurological ROS: burning sensations - Psychiatric Psychiatric: anxiety, change in appetite, irritability, tactile - Hematologic/Lymphatic Additional comments: rectal bleeding - Allergic/Immunologic Allergic/Immunologic: uticaria, lip swelling Additional comments: sore throat - Constitutional Vitals: Temp Pulse Resp BP Pulse Ox 98.7 F 71 16 130/81 98 06/10/18 17:36 06/10/18 17:36 06/10/18 17:36 06/10/18 17:36 06/10/18 17:36 General appearance: Present: mild distress, A&O X 3, answers questions appropriately Exam: mild to moderate distress d/t scratching from urticaria rash, irritable, unable to relax to itching of skin - Head Head exam: Present: atraumatic, normocephalic - Eye Eye exam: Present: PERRL, conjuntiva pink, sclera anicteric Pupils: Present: PERRL - ENT ENT exam: Present: mucous membranes moist Additional comments: post pharynx erythmatous with thick yellow exudates post pharynx and ventral side of tongue Will treat with anti-fungal po swish and swallow right external Flores erythmatous and edematous - Neck Additional comments: decreased ROM with forward flexion d/t cervical fusion well healed scares noted anterior cervical - Respiratory Respiratory exam: Present: rales, rhonchi, wheezes - Cardiovascular Cardiovascular exam: Present: RRR - GI/Abdominal GI/Abdominal exam: Present: normal bowel sounds, soft Additional comments: 5 well healing surgical puncture wounds from previous fundolapication procedure . Mild tenderness with palp at surigical site - Extremities Exam Extremities exam: Present: full ROM, warm Additional comments: urticarial rash upper and lower ext - Incison Incision: Present: clean and dry, intact, approximated - Back Exam Back exam: Present: full ROM, normal inspection - Neurological Exam Neurological exam: Present: alert, CN II-XII intact, normal gait, oriented X3, reflexes normal, no focal deficits - Psychiatric Psychiatric exam: Present: agitated, anxious - Skin Skin exam: Present: dry, erythema, rash, urticaria Internal Med - H&P Results - Labs CBC & Chem 7: 06/10/18 14:55 06/10/18 14:35 Labs: Short CBC 06/10/18 Range/Units 14:55 WBC 18.1 H (4.3-11.1) K/mcL Hgb 16.8 (12.9-16.9) g/dL Hct 47.7 (37.5-50.1) % Plt Count 428 H (140-400) K/mcL Neutrophils # 15.1 H (1.6-8.9) K/mcL BMP 06/10/18 14:35 Sodium 138 Potassium 3.8 Chloride 101 Carbon Dioxide 25 BUN 15 Creatinine 1.03 Glucose 145 H Calcium 10.4 H Liver Function 06/10/18 Range/Units 14:35 Total Bilirubin 0.7 (0.3-1.0) mg/dL AST 23 (13-39) Units/L ALT 18 (7-52) Units/L Alkaline Phosphatase 103 (34-104) Units/L Albumin 4.5 (3.5-5.7) g/dL - Impressions ITS Impressions Abdomen/Pelvis CT 06/10/18 14:32 IMPRESSION: 1. Postsurgical changes from fundoplication. 2. No acute abnormality within the chest, abdomen, or pelvis. D/ / Mu Khoury MD / Mu Khoury MD Interpreting Provider: Mu Khoury MD Chest CT 06/10/18 14:33 IMPRESSION: 1. Postsurgical changes from fundoplication. 2. No acute abnormality within the chest, abdomen, or pelvis. D/ / Mu Khoury MD / Mu Khoury MD Interpreting Provider: Mu Khoury MD - Assessment and plan (1) Alcohol withdrawal Current Visit: Yes Status: Acute Assessment and plan: Will monitor for seizure, continue with Benzodiazapines, and beta blockers, obtain seroum lab work and complete work up for DT's. Qualifiers: Complication of substance-induced condition: with perceptual disturbance Qualified Code(s): F10.232 - Alcohol dependence with withdrawal with perceptual disturbance (2) Adverse reaction to drug Current Visit: No Status: Acute Assessment and plan: Will treat with IV steroid, monitor for adverse effects, and resolution of rash and adverse reactions Qualifiers: Encounter type: initial encounter Qualified Code(s): T50.905A - Adverse effect of unspecified drugs, medicaments and biological substances, initial encounter (3) Abdominal pain Current Visit: Yes Status: Acute Assessment and plan: s/p hiatial hernia repair with obtain gastro consult and restart regular diet . Qualifiers: Abdominal location: generalized Qualified Code(s): R10.84 - Generalized abdominal pain (4) Oral thrush Current Visit: Yes Status: Acute Assessment and plan: will treat with oral antifungal (5) DVT prophylaxis Current Visit: Yes Status: Acute Assessment and plan: per protocol - Time Spent With Patient Total time spent is greater than 50% in coordination of care (as documented) at patient's floor/unit and/or counseling patient: 25 - 35 minutes
[2018-06-10] MEDS: *HR* LORazepam 2 MG/ML VIAL IVP PRN ×2 (18:38→20:34)
[2018-06-10] MEDS: Fluconazole 40 MG/ML UDC PO SCH (20:34)
[2018-06-10] MEDS: MethylPREDNISolone 40 MG/ML VIAL IVP SCH (20:34)
[2018-06-10] MEDS: Nystatin SUSP 5 ML UD.LIQ PO SCH (20:35)
[2018-06-10] MEDS: Ondansetron 4 MG/2 ML VIAL IVP PRN (20:57)
[2018-06-10] MEDS: traMADol 50 MG TABLET PO PRN (20:58)
[2018-06-10] MEDS ORDERED: *HR* Promethazine 25 MG/ML VIAL ONE (23:44)
[2018-06-10] MEDS: *HR* Promethazine 25 MG/ML VIAL IVP ONE (23:54)
[2018-06-11] MEDS: *HR* Promethazine 25 MG/ML VIAL IVP ONE
[2018-06-11 04:59] LABS: Basophils % 0.1 %; Eosinophils % 0.1 %; Hematocrit 35.7 % (37.5-50.1); Immature Granulocytes % 0.3 % (0-4); Mean Corpuscular Hemoglobin 34.3 pg (28.0-33.3); Mean Corpuscular Volume 98.1 fL (83.0-100.0); Mean Platelet Volume 9.6 fL (9.4-12.4); Monocytes # 0.1 K/mcL (0.0-1.3); Monocytes % 1.4 %; Neutrophils # 6.3 K/mcL (1.6-8.9); Platelet Count 266 K/mcL (140-400); Red Blood Count 3.64 M/mcL (4.19-5.50); Red Cell Distribution Width 11.9 % (11.5-14.5); Segmented Neutrophils % 85.1 %
[2018-06-11 05:01] LABS: Hemoglobin 12.5 g/dL (12.9-16.9)
[2018-06-11 05:17] LABS: BUN/Creatinine Ratio 19 (6-26); Blood Urea Nitrogen 14 mg/dL (6-20); Calcium 8.9 mg/dL (8.6-10.3); Carbon Dioxide 24 mEq/L (23-29); Chloride 107 mEq/L (98-107); Glucose 128 mg/dL (70-105); Osmolality,Calculated 290 (280-300); Potassium 3.9 mEq/L (3.5-5.1); Sodium 139 mEq/L (136-145); eGFR For Non-African Americans > 60 (> 60)
[2018-06-11] MEDS: Ondansetron 4 MG/2 ML VIAL IVP PRN ×2 (06:55→23:04)
[2018-06-11] MEDS: *HR* LORazepam 2 MG/ML VIAL IVP PRN (06:55)
[2018-06-11] MEDS: traMADol 50 MG TABLET PO PRN ×3 (07:25→20:21)
[2018-06-11] MEDS: MethylPREDNISolone 40 MG/ML VIAL IVP SCH (08:17)
[2018-06-11] MEDS: Nystatin SUSP 5 ML UD.LIQ PO SCH ×4 (08:17→20:21)
[2018-06-11] MEDS: Thiamine (B-1) 100 MG TABLET PO SCH (08:17)
[2018-06-11] MEDS: Fluconazole 40 MG/ML UDC PO SCH (08:20)
--- NOTE | 2018-06-11 13:27 | Internal Med Progress Note ---
Hospitalist Progress Note - Encounter Date of Encounter: 06/11/18 Time of Encounter: 13:25 - Subjective Interval History: Patient seen and evaluated at bedside. He reports feeling a bit better with less itching but reports that his eyes are still swollen. Also reports that he was having tremors earlier during the day, which he believed was when the medication was wearing off. He denies mental cloudiness, dizziness, nausea or vomiting, report painful swallowing, but denies abdominal pain. - Exam Vitals: Temp Pulse Resp BP Pulse Ox 98.7 F 82 16 131/71 92 06/11/18 11:26 06/11/18 11:26 06/11/18 11:26 06/11/18 11:26 06/11/18 11:26 Exam: General: Alert and oriented x4. in mild/moderate distress due to itching and resting tremors. Skin: generalized urticarial rash has improved. HEENT: mild periorbital edema, EOM, pupils equal, round and reactive. Cardiovascular: RRR, Normal S1 & S2, no rubs, murmurs or gallops. Lungs: CTA bilaterally, no wheezes or crackles. Abdomen: Soft, non-tender, no rigidity. NABS in all 4 quadrants Extremities: No deformity, no edema or tenderness, no joint swelling or clubbing. Neurological: Normal cognition and motor skills. Minimal resting tremors Rest of the physical exam is non contributory - Assessment and Plan (1) Alcohol withdrawal Current Visit: Yes Status: Acute Assessment and Plan: CIWA score of 2 Plan continue DT prophylaxis patient on Ativan and diazepam as per DT protocol telemetry monitoring. thiamine 100mg/PO daily continue low dose bb (2) Adverse reaction to drug Current Visit: No Status: Acute Assessment and Plan: resolving. patient reports that the itching has improved. the urticarial rash is also resolving. Plan Continue Solu-medrol 40mg/IV daily (3) Oral thrush Current Visit: Yes Status: Acute Assessment and Plan: Patient reporting odinophagia. Plan started on gentle IV hydration as maintenance fluid as patient not tolerating diet well. on fluconazole 200mg/PO daily GI consulted to evaluate for possible Oma esophagitis HIV test. PPI 40mg/IV daily (4) Hypertension Current Visit: Yes Status: Chronic Assessment and Plan: BP well controlled. Patient on a BB and lisinopril outpatient. continue carvedilol. Hold lisinopril for now. DVT Prophylaxis: Started on heparin 5000 units subcutaneous twice a day for DVT prophylaxis. - Summary of Assessment and Plan Summary of Assessment and Plan: Patient to reamin in the hospital as patient continues to have alcohol withdrawal symptoms. - Time Spent with Patient Total time spent is greater than 50% in coordination of care (as documented) at patient's floor/unit and/or counseling patient: Plan of Care Discussed with: patient (his and the nurse.) Internal Medicine: Result - Labs CBC & Chem 7: 06/11/18 04:11 06/11/18 04:11 Labs: Short CBC 06/10/18 06/11/18 Range/Units 14:55 04:11 WBC 18.1 H 7.4 D (4.3-11.1) K/mcL Hgb 16.8 12.5 L D (12.9-16.9) g/dL Hct 47.7 35.7 L (37.5-50.1) % Plt Count 428 H 266 (140-400) K/mcL Neutrophils # 15.1 H 6.3 (1.6-8.9) K/mcL BMP 06/10/18 06/11/18 14:35 04:11 Sodium 138 139 Potassium 3.8 3.9 Chloride 101 107 Carbon Dioxide 25 24 BUN 15 14 Creatinine 1.03 0.74 Glucose 145 H 128 H Calcium 10.4 H 8.9 Liver Function 06/10/18 Range/Units 14:35 Total Bilirubin 0.7 (0.3-1.0) mg/dL AST 23 (13-39) Units/L ALT 18 (7-52) Units/L Alkaline Phosphatase 103 (34-104) Units/L Albumin 4.5 (3.5-5.7) g/dL - ABG Interpretation ABG results: PT/INR, D-dimer PT 11.1 Seconds (9.4-12.1) 06/10/18 14:55 - Impressions Impressions Abdomen/Pelvis CT 06/10/18 14:32 IMPRESSION: 1. Postsurgical changes from fundoplication. 2. No acute abnormality within the chest, abdomen, or pelvis. D/ / Mu Khoury MD / Mu Khoury MD Interpreting Provider: Mu Khoury MD Chest CT 06/10/18 14:33 IMPRESSION: 1. Postsurgical changes from fundoplication. 2. No acute abnormality within the chest, abdomen, or pelvis. 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
[2018-06-11] MEDS ORDERED: Albuterol 2.5 MG/3 ML NEBULIZER IH PRN (13:36)
[2018-06-11] MEDS: D5% in 0.45% NACL 1,000 ML IVC SCH (14:41)
[2018-06-11] MEDS: Pantoprazole 40 MG VIAL IVP SCH (14:41)
[2018-06-11 15:12] LABS: Bilirubin,Urine Small (Negative); Blood,Urine Negative (Negative); Clarity,Urine Clear (Clear); Color,Urine Dark Yellow (Yellow); Glucose,Urine (UA) Normal (Normal); Ketones,Urine 15 mg/dL (Negative); Leukocyte Esterase,Urine Negative (Negative); Nitrite,Urine Negative (Negative); PH,Urine 5.5 pH Units (5.0-8.0); Protein,Urine Trace mg/dL (Neg-Trace); Urobilinogen,Urine Normal (Normal)
[2018-06-11 15:21] LABS: Amphetamine Screen,Urine Negative ng/mL (Cutoff=1000); Barbiturate Screen,Urine Positive ng/mL (Cutoff=200); Benzodiazepines Screen,Urine Positive ng/mL (Cutoff=200); Cannabinoid Screen,Urine Positive ng/mL (Cutoff = 50); Cocaine Screen,Urine Negative ng/mL (Cutoff= 300); Opiate Screen,Urine Negative ng/mL (Cutoff=300); Phencyclidine Screen,Urine Negative ng/mL (Cutoff=25)
[2018-06-11] MEDS: *HR* Heparin 5,000 UNIT/ML VIAL SQ SCH (17:29)
[2018-06-11] MEDS ORDERED: *HR* LORazepam 2 MG/ML VIAL IVP ONE (23:56)
[2018-06-12] MEDS ORDERED: *HR* HYDROcodone/Acet 5/325 mg TABLET PO ONE (03:49)
[2018-06-12 04:46] LABS: BUN/Creatinine Ratio 20 (6-26); Blood Urea Nitrogen 14 mg/dL (6-20); Calcium 9.2 mg/dL (8.6-10.3); Carbon Dioxide 27 mEq/L (23-29); Chloride 104 mEq/L (98-107); Glucose 114 mg/dL (70-105); Magnesium 1.9 mg/dL (1.6-2.6); Osmolality,Calculated 285 (280-300); Phosphorous 3.1 mg/dL (2.7-4.5); Potassium 3.4 mEq/L (3.5-5.1); Sodium 137 mEq/L (136-145); eGFR For Non-African Americans > 60 (> 60)
[2018-06-12] MEDS: *HR* Heparin 5,000 UNIT/ML VIAL SQ SCH ×2 (06:04→17:04)
[2018-06-12] MEDS: Ondansetron 4 MG/2 ML VIAL IVP PRN (06:05)
[2018-06-12] MEDS: Pantoprazole 40 MG VIAL IVP SCH (08:20)
[2018-06-12] MEDS: MethylPREDNISolone 40 MG/ML VIAL IVP SCH (08:20)
[2018-06-12] MEDS: Nystatin SUSP 5 ML UD.LIQ PO SCH ×4 (08:20→21:30)
[2018-06-12] MEDS: Thiamine (B-1) 100 MG TABLET PO SCH (08:20)
[2018-06-12] MEDS: Fluconazole 40 MG/ML UDC PO SCH (08:20)
[2018-06-12] MEDS: D5% in 0.45% NACL 1,000 ML IVC SCH (08:31)
--- NOTE | 2018-06-12 12:46 | Internal Med Progress Note ---
Hospitalist Progress Note - Encounter Date of Encounter: 06/12/18 Time of Encounter: 12:43 - Subjective Interval History: Patient seen and evaluated at bedside, reports intermittent mild itching. Reports that he is still having pain with swallowing, denies nausea or vomiting. Continues to have fine intentional tremors. - Exam Vitals: Temp Pulse Resp BP Pulse Ox 98.4 F 75 16 131/77 93 06/12/18 11:19 06/12/18 11:19 06/12/18 11:19 06/12/18 11:19 06/12/18 11:19 Exam: General: Alert and oriented x4. in mild/moderate distress due to itching and resting tremors. Skin: generalized urticarial rash almost resolved. HEENT: periorbital edema has resolved, EOM, pupils equal, round and reactive. Cardiovascular: RRR, Normal S1 & S2, no rubs, murmurs or gallops. Lungs: CTA bilaterally, no wheezes or crackles. Abdomen: Soft, non-tender, no rigidity. NABS in all 4 quadrants Extremities: no edema, strength is 5 out of 5 in the upper and lower extremity. Neurological: Normal cognition. Continues to have Minimal resting tremors Rest of the physical exam is non contributory - Assessment and Plan (1) Alcohol withdrawal Current Visit: Yes Status: Acute Assessment and Plan: Continue to have fine intentional tremors but improved when compared to admiss ion day. Plan Continue CT prophylaxis Patient on Ativan and Valium. Telemetry monitoring. (2) Adverse reaction to drug Current Visit: No Status: Acute Assessment and Plan: Urticaria type of rash has significantly improved. Continue diphenhydramine 25 mg every 6 hours when necessary for itching Continue Solu-Medrol 40 mg IV daily. (3) Oral thrush Current Visit: Yes Status: Acute Assessment and Plan: Plan GI has been consulted Continue fluconazole 200 mg by mouth daily Continue PPI 40 mg IV daily as patient is not tolerating well by mouth diet Maintenance IV fluid (4) Hypertension Current Visit: Yes Status: Chronic Assessment and Plan: Blood pressure is well controlled. Patient on carvedilol. DVT Prophylaxis: Continue heparin 5000 units subcutaneous twice a day for DVT prophylaxis. - Summary of Assessment and Plan Summary of Assessment and Plan: Patient to remain in the hospital pending GI evaluation. - Time Spent with Patient Total time spent is greater than 50% in coordination of care (as documented) at patient's floor/unit and/or counseling patient: 25 - 35 minutes Plan of Care Discussed with: patient Internal Medicine: Result - Labs CBC & Chem 7: 06/11/18 04:11 06/12/18 03:43 Labs: BMP 06/12/18 03:43 Sodium 137 Potassium 3.4 L Chloride 104 Carbon Dioxide 27 BUN 14 Creatinine 0.70 Glucose 114 H Calcium 9.2 Urine 06/11/18 Range/Units 14:55 Urine Color Dark Yellow (Yellow) Urine Clarity Clear (Clear) Urine pH 5.5 (5.0-8.0) pH Units Ur Specific [place] 1.030 H (1.010-1.025) Urine Protein Trace (Neg-Trace) mg/dL Urine Glucose (UA) Normal (Normal) mg/dL - ABG Interpretation ABG results: PT/INR, D-dimer PT 11.1 Seconds (9.4-12.1) 06/10/18 14:55 Consult Discharge Plan - Plan Referrals: Esteban Garrett MD [Primary Care Provider] - (1) Alcohol withdrawal Qualifiers: Complication of substance-induced condition: with perceptual disturbance Qualified Code(s): 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
--- NOTE | 2018-06-12 14:34 | General Surgery Consult Note ---
<Kin Alicia S - Last Filed: 06/12/18 15:57> Date of Encounter: 06/12/18 Time of Encounter: 14:32 Assessment and Plan (1) Odynophagia Current Visit: Yes Status: Acute S/p Merissa fundoplication 05/25/18 Patient admits to progressive odynophagia since procedure Patient states he has not deviated from Merissa diet Supplement with ensure clear TID Ordered upper GI, further recommendations pending results Gastroenterology consulted to rule out oral candidiasis EGD planned for tomorrow Patient had oral thrush on presentation Started on nystatin rinse and fluconazole (2) Oral thrush Current Visit: Yes Status: Acute Management per primary Started on nystatin rinse and fluconazole GI consulted for possible esophageal candidiasis WBC 18.1 > 7.4 Afebrile (3) Alcohol withdrawal Current Visit: Yes Status: Acute Management per primary Patient states his last drink was 5-6 days ago Patient on CIWA protocol Patient does not display tremors or agitation on my exam today On valium and ativan PRN Qualifiers: Complication of substance-induced condition: with perceptual disturbance Qualified Code(s): 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 Patient has had progressive worsening painfl swallowing and difficulty swallowing since his procedure. Patient states he has not deviated from his Merissa diet. Patient states he was recently started on tizanidine for back and neck spasms, but developed a full body rash the next day. He came to the ED 06/08 and was treated with steroids and benadryl. He saw Dr. Arnold the following day, who treated him for DTs with metoprolol and librium. Patient returned to the ED on 06/10 for worsening symptoms of odynophagia and dysphagia. Patient started on nystatin rinse and fluconazole for oral thrush. GI was consulted for possible esophageal candidiasis. Surgery was consulted due to recent Merissa procedure and worsening odynophagia. Patient seen and examined this afternoon. Patient states he's not able to keep any liquids down due to difficulty swallowing. He admits to chills, painful swallowing, chest tightening, chest pain when he belches, and nausea. Patient denies SOB, abdominal pain, constipation. Patient is a current smoker of 30 years, smokes 1/2 PPD now. He has a history of chronic alcohol abuse, and states his last drink was 5-6 days ago. Past Med Surg Social Fam HX - Past Medical History Medical history: cancer, COPD, GERD, hyperlipidemia, hypertension Additional medical history: cervical stenosis, alcoholism Psychiatric history: anxiety, depression, PTSD - Past Surgical History Surgical History: other Additional surgical history: shoulder bicep repair sx, metal in neck, foot sx, hand sx, right knee scope, vericocelectomy, cervical fusion. fundalopacation 05/25/2018 for hiatal hernia repair - Social History Smoking Status: Current every day smoker Smokeless Tobacco Status: Yes (2ppd) Alcohol use: heavy, recent Drug use: opiates, marijuana, prescription drug abuse Medications and Allergies RX: Folic Acid/Multivit-Min/Lutein [Cvs Spectravite Adult Tab Chew] 1 each PO DAILY 05/25/18 [History] RX: Gabapentin [Neurontin] 600 mg PO HS 05/25/18 [History] RX: Nabumetone [Relafen] 500 - 1,000 mg PO BID PRN 05/25/18 [History] RX: Omeprazole [PriLOSEC] 40 mg PO DAILY 05/25/18 [History] Docusate [Colace] 100 mg PO BID PRN #30 capsule 05/26/18 [Rx] RX: OxyCODONE/APAP 5/325 [Percocet 5/325 MG] 1 each PO Q6H PRN 7 Days #28 tablet 05/26/18 [Rx] DiphenhydraMINE [Benadryl] 25 mg PO Q8HR #20 capsule 06/08/18 [Rx] RX: predniSONE [Prednisone] 50 mg PO DAILY #5 tablet 06/08/18 [Rx] Albuterol Sulfate [Proair Hfa] 2 puff IH Q4H PRN 06/10/18 [History] Atenolol [Tenormin] 50 mg PO DAILY 06/10/18 [History] Chlordiazepoxide [Librium] 25 mg PO TID 06/10/18 [History] RX: Lisinopril [Zestril] 20 mg PO DAILY 06/10/18 [History] Allergy/AdvReac Type Severity Reaction Status Date / Time No Known Allergies Allergy Verified 06/10/18 16:40 Review of Systems All systems PM: The remainder of the systems were reviewed and are negative General Surgery Exam Initial Vital Signs Temp Pulse Resp BP Pulse Ox 98.6 F 73 20 134/93 100 06/10/18 14:30 06/10/18 14:30 06/10/18 14:30 06/10/18 14:30 06/10/18 14:30 - General physical appearance well developed, no distress - ENT normal mucosa - Respiratory normal expansion, normal respiratory effort - Cardiovascular Cardiovascular exam: Present: RRR - Abdomen Abdomen general surgery: Present: bowel sounds present, soft, non tender Hernia: Present: none - Integumentary Integumentary general surgery: Present: warm and dry - Neurologic Present: other (no evidence of tremors) - Psychiatric Psychiatric general surgery: Present: A&Ox3, appropriate Exam Initial Vital Signs Temp Pulse Resp BP Pulse Ox 98.6 F 73 20 134/93 100 06/10/18 14:30 06/10/18 14:30 06/10/18 14:30 06/10/18 14:30 06/10/18 14:30 Results - Labs 06/11/18 04:11 06/12/18 03:43 Abnormal lab results RBC 3.64 M/mcL (4.19-5.50) L 06/11/18 04:11 Hgb 12.5 g/dL (12.9-16.9) L D 06/11/18 04:11 Hct 35.7 % (37.5-50.1) L 06/11/18 04:11 MCH 34.3 pg (28.0-33.3) H 06/11/18 04:11 Potassium 3.4 mEq/L (3.5-5.1) L 06/12/18 03:43 Glucose 114 mg/dL (70-105) H 06/12/18 03:43 Ur Specific [place] 1.030 (1.010-1.025) H 06/11/18 14:55 Urine Ketones 15 mg/dL (Negative) H 06/11/18 14:55 Urine Bilirubin Small (Negative) H 06/11/18 14:55 Ur Barbiturates Screen Positive ng/mL (Ebvrvb=845) H 06/11/18 14:55 U Benzodiazepines Scrn Positive ng/mL (Diukdw=801) H 06/11/18 14:55 U Marijuana (THC) Screen Positive ng/mL (Cutoff = 50) H 06/11/18 14:55 Diabetes panel 06/12/18 Range/Units 03:43 Sodium 137 (136-145) mEq/L Potassium 3.4 L (3.5-5.1) mEq/L Chloride 104 (98-107) mEq/L Carbon Dioxide 27 (23-29) mEq/L BUN 14 (6-20) mg/dL Creatinine 0.70 (0.70-1.30) mg/dL Glucose 114 H (70-105) mg/dL Calcium 9.2 (8.6-10.3) mg/dL Calcium panel 06/12/18 Range/Units 03:43 Calcium 9.2 (8.6-10.3) mg/dL Phosphorus 3.1 (2.7-4.5) mg/dL Pituitary panel 06/12/18 Range/Units 03:43 Sodium 137 (136-145) mEq/L Potassium 3.4 L (3.5-5.1) mEq/L Chloride 104 (98-107) mEq/L Carbon Dioxide 27 (23-29) mEq/L BUN 14 (6-20) mg/dL Creatinine 0.70 (0.70-1.30) mg/dL Glucose 114 H (70-105) mg/dL Calcium 9.2 (8.6-10.3) mg/dL Adrenal panel 06/12/18 Range/Units 03:43 Sodium 137 (136-145) mEq/L Potassium 3.4 L (3.5-5.1) mEq/L Chloride 104 (98-107) mEq/L Carbon Dioxide 27 (23-29) mEq/L BUN 14 (6-20) mg/dL Creatinine 0.70 (0.70-1.30) mg/dL Glucose 114 H (70-105) mg/dL Calcium 9.2 (8.6-10.3) mg/dL All other labs normal. Consult Discharge Plan - Plan Referrals: Esteban Garrett MD [Primary Care Provider] - <Beau Arnold Moises - Last Filed: 06/14/18 06:58> Review of Systems All systems PM: The remainder of the systems were reviewed and are negative General Surgery Exam Initial Vital Signs Temp Pulse Resp BP Pulse Ox 98.6 F 73 20 134/93 100 06/10/18 14:30 06/10/18 14:30 06/10/18 14:30 06/10/18 14:30 06/10/18 14:30 Exam Initial Vital Signs Temp Pulse Resp BP Pulse Ox 98.6 F 73 20 134/93 100 06/10/18 14:30 06/10/18 14:30 06/10/18 14:30 06/10/18 14:30 06/10/18 14:30 Results - Labs 06/13/18 08:08 06/13/18 08:08 Abnormal lab results RBC 3.88 M/mcL (4.19-5.50) L 06/13/18 08:08 MCH 35.1 pg (28.0-33.3) H 06/13/18 08:08 MCHC 36.1 g/dL (31.6-35.5) H 06/13/18 08:08 Potassium 3.2 mEq/L (3.5-5.1) L 06/13/18 08:08 Glucose 118 mg/dL (70-105) H 06/13/18 08:08 Ur Specific [place] 1.030 (1.010-1.025) H 06/11/18 14:55 Urine Ketones 15 mg/dL (Negative) H 06/11/18 14:55 Urine Bilirubin Small (Negative) H 06/11/18 14:55 Ur Barbiturates Screen Positive ng/mL (Khxvsf=221) H 06/11/18 14:55 U Benzodiazepines Scrn Positive ng/mL (Xzblai=257) H 06/11/18 14:55 U Marijuana (THC) Screen Positive ng/mL (Cutoff = 50) H 06/11/18 14:55 Diabetes panel 06/13/18 Range/Units 08:08 Sodium 139 (136-145) mEq/L Potassium 3.2 L (3.5-5.1) mEq/L Chloride 101 (98-107) mEq/L Carbon Dioxide 29 (23-29) mEq/L BUN 13 (6-20) mg/dL Creatinine 0.73 (0.70-1.30) mg/dL Glucose 118 H (70-105) mg/dL Calcium 9.8 (8.6-10.3) mg/dL Calcium panel 06/13/18 06/13/18 Range/Units 08:08 08:08 Calcium 9.8 (8.6-10.3) mg/dL Phosphorus 3.8 (2.7-4.5) mg/dL Pituitary panel 06/13/18 Range/Units 08:08 Sodium 139 (136-145) mEq/L Potassium 3.2 L (3.5-5.1) mEq/L Chloride 101 (98-107) mEq/L Carbon Dioxide 29 (23-29) mEq/L BUN 13 (6-20) mg/dL Creatinine 0.73 (0.70-1.30) mg/dL Glucose 118 H (70-105) mg/dL Calcium 9.8 (8.6-10.3) mg/dL Adrenal panel 06/13/18 Range/Units 08:08 Sodium 139 (136-145) mEq/L Potassium 3.2 L (3.5-5.1) mEq/L Chloride 101 (98-107) mEq/L Carbon Dioxide 29 (23-29) mEq/L BUN 13 (6-20) mg/dL Creatinine 0.73 (0.70-1.30) mg/dL Glucose 118 H (70-105) mg/dL Calcium 9.8 (8.6-10.3) mg/dL All other labs normal. - Attending Attestation I examined this patient and my medical decision-making was reviewed with the Resident Physician. I agree with the documented findings, disposition and treatment plan as described except to the extent set forth below. The patient is seen and evaluated with the resident and clinical nurse practitioner. He has nausea and vomiting after Merissa fundoplication. We will plan upper GI evaluation and follow along with you. Abdominal examination is completely negative chest examination is negative he does not appear to have esophageal damage or perforation. We will plan evaluation with upper GI to rule out esophagus outlet obstruction from perioperative edema Beau Arnold MD FACS
--- NOTE | 2018-06-12 15:05 | Gastroenterology Consult Note ---
<Jermaine Kiser - Last Filed: 06/12/18 15:03> Date of Encounter: 06/12/18 Time of Encounter: 11:30 - Time Spent With Patient Total time spent is greater than 50% in coordination of care (as documented) at patient's floor/unit and/or counseling patient: GI History of Present Illness - Data of Consult Patient: new to practice Consult date: 06/12/18 Requesting Physician: Julián Noel MD - Consult Narrative Reason for consult: Oral thrush, r/o dario esophagitis, odynophagia History of present illness: Mr. Huang is a 52 year old male with PMHx of COPD, GERDm HLD, HTN, alcoholism, s/p Lap Merissa 05/25/2018 who presented to the ED for severe itching, urticaria rash, difficultly swallowing, reports unable to take medications d/t "getting stuck" and "vomiting them back up". Reports rash started 5 days ago after starting tizanadine for back and neck pain and muscle spasms. He is positive for hx of long-time use and abuse of alcohol, and opioid drugs for chronic pain. States that his last drink was 8 beers 4 days ago. Reports that he normally drinks a 12 pack of beer daily for "years". Reports daily use of oxycodone for chronic pain of lower back and neck. He also complains of abdominal pain, nausea, and vomiting. He was noted to have oral thrush, and we were consulted to evaluated for possible dario esophagitis. Procedures: Esophageal manometry 05/02/2018: Normal Colonoscopy 04/05/2018 Dr. Arnold: Normal EGD 04/05/2018 Dr. Arnold: Large hiatal hernia, irregular Z-line, reflux esophagitis NSAIDs: None Anticoagulation: None A/P 1. Oral thrush: Continue Nystatin. Plan for EGD tomorrow to evaluate for dario esophagitis. Keep patient NPO at midnight. 2. Alcohol withdrawal: Management per primary team. 3. Recent Lap Merissa: Lap Merissa completed on 05/25/[address] Arnold. Past Med Surg Social Fam HX - Past Medical History Medical history: cancer, COPD, GERD, hyperlipidemia, hypertension Additional medical history: cervical stenosis, alcoholism Psychiatric history: anxiety, depression, PTSD - Past Surgical History Surgical History: other Additional surgical history: shoulder bicep repair sx, metal in neck, foot sx, hand sx, right knee scope, vericocelectomy, cervical fusion. fundalopacation 05/25/2018 for hiatal hernia repair - Social History Smoking Status: Current every day smoker Smokeless Tobacco Status: Yes (2ppd) Alcohol use: heavy, recent Drug use: opiates, marijuana, prescription drug abuse - Gastrointestinal Gastrointestinal: Present: as per HPI - Constitutional Constitutional: as per HPI - EENT Eyes: as per HPI Ears: Present: as per HPI Nose, mouth and throat: Present: as per HPI - Cardiovascular Cardiovascular ROS: Present: as per HPI - Respiratory Respiratory IM: Present: as per HPI - Genitourinary Genitourinary: Absent: change in color, Urinary frequency - Neurological ROS Neurological GI: Present: as per HPI - Hematologic/Lymphatic Hematologic/Lymphatic pediatric: Present: as per HPI - Musculoskeletal Musculoskeletal ROS GI: Present: as per HPI - Integumentary Integumentary GI: Present: as per HPI - Psychiatric ROS Psychiatric GI: Present: as per HPI - Endocrine Endocrine IM: Present: as per HPI - Constitutional Vitals: Temp Pulse Resp BP Pulse Ox 98.8 F 75 16 140/80 95 06/12/18 14:59 06/12/18 14:59 06/12/18 14:59 06/12/18 14:59 06/12/18 14:59 General appearance: Present: cooperative, A&O X 3, no acute distress, answers questions appropriately - Head Head exam: Present: atraumatic, normocephalic - Eye Eye exam: Present: normal appearance, sclera anicteric - ENT ENT exam: Present: mucous membranes moist - Neck Neck exam general surgery: Present: normal inspection, trachea midline - Respiratory Respiratory exam: Present: CTAB. Absent: rales, rhonchi - Cardiovascular Cardiovascular exam: Present: RRR, +S1, +S2 - GI/Abdominal GI/Abdominal exam: Present: normal bowel sounds, soft, no peritoneal signs - Rectal Rectal exam: Present: deferred - Extremities Exam Extremities exam: Present: warm - Neurological Exam Neurological exam: Present: no focal deficits - Psychiatric Psychiatric exam: Present: normal affect, normal mood - Skin Skin exam: Present: dry, intact, normal color, warm Results - Labs CBC & Chem 7: 06/11/18 04:11 06/12/18 03:43 Labs: Last Result Calcium 9.2 mg/dL (8.6-10.3) 06/12/18 03:43 Vitamin B12 568 pg/mL (250-1100) 06/10/18 17:54 Urine Opiates Screen Negative ng/mL (Mxtpsa=[id number]) 06/11/18 14:55 Entire Visit Hgb 12.5 g/dL (12.9-16.9) L D 06/11/18 04:11 Hct 35.7 % (37.5-50.1) L 06/11/18 04:11 PT 11.1 Seconds (9.4-12.1) 06/10/18 14:55 Total Bilirubin 0.7 mg/dL (0.3-1.0) 06/10/18 14:35 AST 23 Units/L (13-39) 06/10/18 14:35 ALT 18 Units/L (7-52) 06/10/18 14:35 Amylase 37 Units/L (29-103) 06/10/18 17:54 Lipase 40 Units/L (11-82) 06/10/18 14:35 - ABG ABG results: PT/INR, D-dimer PT 11.1 Seconds (9.4-12.1) 06/10/18 14:55 Consult Discharge Plan - Plan Referrals: Beau Arnold MD [Partnered Physician] - 06/16/18 11:35 am Joshua Wiggins MD [Partnered Physician] - Esteban Garrett MD [Primary Care Provider] - 06/21/18 4:00 pm (Appointment with Susana Holloway CNP) Prescriptions: RX: Carvedilol [Coreg] 3.125 mg PO BIDWM #60 tablet RX: DiphenhydraMINE [Benadryl] 25 mg PO Q6H PRN #1 bottle PRN Reason: Itching RX: Hydrocortisone 1% CREAM [Cortaid] 1 appl TP BID PRN #1 bottle PRN Reason: Itching RX: Nicotine Patch [Nicoderm] 21 mg TD DAILY #24 patch.td24 <Joshua Wiggins - Last Filed: 06/16/18 10:20> - Time Spent With Patient Total time spent is greater than 50% in coordination of care (as documented) at patient's floor/unit and/or counseling patient: GI History of Present Illness - Data of Consult Requesting Physician: Julián Noel MD - Consult Narrative History of present illness: Mr. Huang is a 52 year old male - Constitutional Vitals: Temp Pulse Resp BP Pulse Ox 98.0 F 78 16 111/75 94 06/15/18 15:15 06/15/18 15:15 06/15/18 15:15 06/15/18 15:15 06/15/18 15:15 Results - Labs CBC & Chem 7: 06/15/18 04:28 06/15/18 04:28 Labs: Last Result Calcium 9.4 mg/dL (8.6-10.3) 06/15/18 04:28 Vitamin B12 568 pg/mL (250-1100) 06/10/18 17:54 Stool Occult Blood Negative (Negative) 06/12/18 18:30 Urine Opiates Screen Negative ng/mL (Fqsyfz=406) 06/11/18 14:55 Entire Visit Hgb 12.3 g/dL (12.9-16.9) L 06/15/18 04:28 Hct 34.5 % (37.5-50.1) L 06/15/18 04:28 PT 11.1 Seconds (9.4-12.1) 06/10/18 14:55 Total Bilirubin 0.7 mg/dL (0.3-1.0) 06/10/18 14:35 AST 23 Units/L (13-39) 06/10/18 14:35 ALT 18 Units/L (7-52) 06/10/18 14:35 Amylase 37 Units/L (29-103) 06/10/18 17:54 Lipase 40 Units/L (11-82) 06/10/18 14:35 - ABG ABG results: PT/INR, D-dimer PT 11.1 Seconds (9.4-12.1) 06/10/18 14:55 - Attending Attestation Probable esophageal candidiasis. Examination of the oropharynx did not reveal any thrush. Plan a quick esophagoscopy with minimal insufflation given the recent fundoplication I examined this patient and my medical decision-making was reviewed with the Resident Physician. I agree with the documented findings, disposition and treatment plan as described except to the extent set forth below. to get diagnosis
[2018-06-12] MEDS: *HR* LORazepam 2 MG/ML VIAL IVP PRN ×2 (17:04→21:34)
[2018-06-12] MEDS: traMADol 50 MG TABLET PO PRN ×2 (17:04→23:36)
[2018-06-13] MEDS: *HR* LORazepam 2 MG/ML VIAL IVP PRN (03:07)
[2018-06-13] MEDS: *HR* Heparin 5,000 UNIT/ML VIAL SQ SCH ×2 (05:05→17:37)
--- NOTE | 2018-06-13 08:18 | Internal Med Progress Note ---
Hospitalist Progress Note - Encounter Date of Encounter: 06/13/18 Time of Encounter: 08:16 - Subjective Interval History: Patient evaluated at bedside, he reports still having dry heaves and had some tremors last night, but denies tremors today morning. Patient still reports itching, but improved with yesterday. Reports that he has not been able to capri ate food but to the persistent pain when he tried swallowing. - Exam Vitals: Temp Pulse Resp BP Pulse Ox 98.6 F 73 16 152/81 96 06/13/18 06:40 06/13/18 06:40 06/13/18 06:40 06/13/18 06:40 06/13/18 06:40 Exam: General: Alert and oriented x4. still with in some distress due to itching. Skin: urticarial rash almost resolved. HEENT: No periorbital edema, EOM, pupils equal, round and reactive. Cardiovascular: RRR, Normal S1 & S2, no rubs, murmurs or gallops. Lungs: CTA bilaterally, no wheezes or crackles. Abdomen: Soft, non-tender, no rigidity. NABS in all 4 quadrants Extremities: no edema, strength is 5 out of 5 in the upper and lower extremity. Neurological: Normal cognition. no resting tremors seen Rest of the physical exam is non contributory - Assessment and Plan (1) Odynophagia Current Visit: Yes Status: Acute Assessment and Plan: Possible due to dario esophagitis r/o structural esophagelal abnormality. patient continues to report painful swallowing and not being able to tolerate PO diet. GI series: IMPRESSION: 1. Prominent gastric rugal folds, an indeterminate finding that could be seen with gastritis, Mustapha-Gutierres syndrome, malignancy, and other etiologies. Consider endoscopy. 2. Mild spontaneous gastroesophageal reflux with no hiatal herniation. 3. Normal fluoroscopic appearance of the esophagus and duodenum. Plan Patient scheduled for EGD. conitue fluconazole 200mg/PO daily On nystatin mouth wash. Patient with oral thrush on presentation On D5/0.45% NS @50mls/hr for maintenance plus ensure Pantoprazole 40mg/IV daily Ondansetron 4mg/IV Q4HR PRN for nausea and vomiting (2) Alcohol withdrawal Current Visit: Yes Status: Resolved Assessment and Plan: Patient with minimal tremors. Plan start titrating off CIWA protocol on Lorazepam and Diazepam PRN continue carvedilol 3.125mg/PO BID (3) Adverse reaction to drug Current Visit: No Status: Acute Assessment and Plan: Continue Solu-Medrol 40 mg IV daily. (4) Oral thrush Current Visit: Yes Status: Acute Assessment and Plan: Patient on fluconazole 200mg/PO daily. plus nystatin mouth wash. (5) Hypertension Current Visit: Yes Status: Chronic Assessment and Plan: BP well controlled. Continue Carvedilol 3.125mg/PO BID. DVT Prophylaxis: On heparin 5000 units subcutaneous twice a day for DVT prophylaxis. - Summary of Assessment and Plan Summary of Assessment and Plan: Patient is scheduled for EGD. Discharge planning pending EGD results. - Time Spent with Patient Total time spent is greater than 50% in coordination of care (as documented) at patient's floor/unit and/or counseling patient: 25 - 35 minutes Plan of Care Discussed with: patient (the nurse.) Internal Medicine: Result - Labs CBC & Chem 7: 06/11/18 04:11 06/12/18 03:43 - ABG Interpretation ABG results: PT/INR, D-dimer PT 11.1 Seconds (9.4-12.1) 06/10/18 14:55 - Impressions Impressions Upper GI Series 06/12/18 14:14 IMPRESSION: 1. Prominent gastric rugal folds, an indeterminate finding that could be seen with gastritis, Mustapha-Gutierres syndrome, malignancy, and other etiologies. Consider endoscopy. 2. Mild spontaneous gastroesophageal reflux with no hiatal herniation. 3. Normal fluoroscopic appearance of the esophagus and duodenum. 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
[2018-06-13 08:20] LABS: Hematocrit 37.7 % (37.5-50.1); Hemoglobin 13.6 g/dL (12.9-16.9); Mean Corpuscular HGB Conc 36.1 g/dL (31.6-35.5); Mean Corpuscular Hemoglobin 35.1 pg (28.0-33.3); Mean Corpuscular Volume 97.2 fL (83.0-100.0); Mean Platelet Volume 9.6 fL (9.4-12.4); Platelet Count 235 K/mcL (140-400); Red Blood Count 3.88 M/mcL (4.19-5.50); Red Cell Distribution Width 11.7 % (11.5-14.5)
[2018-06-13 08:39] LABS: BUN/Creatinine Ratio 18 (6-26); Blood Urea Nitrogen 13 mg/dL (6-20); Calcium 9.8 mg/dL (8.6-10.3); Carbon Dioxide 29 mEq/L (23-29); Chloride 101 mEq/L (98-107); Glucose 118 mg/dL (70-105); Magnesium 1.9 mg/dL (1.6-2.6); Osmolality,Calculated 289 (280-300); Potassium 3.2 mEq/L (3.5-5.1); Sodium 139 mEq/L (136-145); eGFR For Non-African Americans > 60 (> 60)
[2018-06-13] MEDS: MethylPREDNISolone 40 MG/ML VIAL IVP SCH (08:51)
[2018-06-13] MEDS: Nystatin SUSP 5 ML UD.LIQ PO SCH ×4 (08:51→21:49)
[2018-06-13] MEDS: Thiamine (B-1) 100 MG TABLET PO SCH (08:51)
[2018-06-13] MEDS: Pantoprazole 40 MG VIAL IVP SCH (08:52)
[2018-06-13] MEDS: Fluconazole 40 MG/ML UDC PO SCH (09:05)
--- NOTE | 2018-06-13 09:24 | General Surgery Progress Note ---
<Kin Alicia S - Last Filed: 06/13/18 09:26> Date of Encounter: 06/13/18 Time of Encounter: 09:21 - Assessment and Plan (1) Odynophagia Current Visit: Yes Status: Acute S/p Merissa fundoplication 05/25/18 Patient admits to progressive odynophagia since procedure Patient states he has not deviated from Merissa diet Supplement with ensure clear TID Upper GI showed prominent gastric folds, mild gastric reflux, no hiatal hernia (normal findings for s/p merissa procedure) Gastroenterology consulted to rule out oral candidiasis EGD planned for today Patient had oral thrush on presentation Started on nystatin rinse and fluconazole No intervention from surgery, we will sign off now, thank you for the consult (2) Oral thrush Current Visit: Yes Status: Acute Management per primary Started on nystatin rinse and fluconazole GI consulted for possible esophageal candidiasis - EGD today WBC 7.4 > 10.2 Afebrile (3) Alcohol withdrawal Current Visit: Yes Status: Resolved Management per primary Patient states his last drink was about 7 days ago Patient on CIWA protocol Patient does not display tremors or agitation on my exam today On valium and ativan PRN Qualifiers: Complication of substance-induced condition: with perceptual disturbance Qualified Code(s): F10.232 - Alcohol dependence with withdrawal with perceptual disturbance Subjective Patient reports: no new complaints, afebrile Narrative: Patient still complains of painful swallowing and difficulty swallowing. Patien t is NPO for EGD today. Patient denies CP, SOB, abdominal pain, n/v Objective Vital Signs - Last 8 Hours Temp Pulse Resp BP Pulse Ox 06/13/18 06:40 98.6 F 73 16 152/81 96 06/13/18 03:44 98.1 F 73 16 132/74 100 Intake and Output 06/12/18 06/13/18 06/13/18 23:59 07:59 15:59 Intake Total 0 / 0 0 / 0 Balance 0 / 0 0 / 0 Intake: Oral 0 / 0 0 / 0 Other: Meal npo Percent of Meal Consumed 0% Weight 74 kg Patient Weight 06/13/18 23:59 Weight 74 kg - General physical appearance well developed - ENT normal mucosa - Respiratory normal expansion, normal respiratory effort - Cardiovascular Cardiovascular exam: Present: RRR - Abdomen Abdomen: Present: bowel sounds present, soft, non tender - Integumentary no rash - Psychiatric oriented to time, oriented to person, oriented to place - Labs 06/13/18 08:08 06/13/18 08:08 Diabetes panel 06/13/18 Range/Units 08:08 Sodium 139 (136-145) mEq/L Potassium 3.2 L (3.5-5.1) mEq/L Chloride 101 (98-107) mEq/L Carbon Dioxide 29 (23-29) mEq/L BUN 13 (6-20) mg/dL Creatinine 0.73 (0.70-1.30) mg/dL Glucose 118 H (70-105) mg/dL Calcium 9.8 (8.6-10.3) mg/dL Calcium panel 06/13/18 06/13/18 Range/Units 08:08 08:08 Calcium 9.8 (8.6-10.3) mg/dL Phosphorus 3.8 (2.7-4.5) mg/dL Pituitary panel 06/13/18 Range/Units 08:08 Sodium 139 (136-145) mEq/L Potassium 3.2 L (3.5-5.1) mEq/L Chloride 101 (98-107) mEq/L Carbon Dioxide 29 (23-29) mEq/L BUN 13 (6-20) mg/dL Creatinine 0.73 (0.70-1.30) mg/dL Glucose 118 H (70-105) mg/dL Calcium 9.8 (8.6-10.3) mg/dL Adrenal panel 06/13/18 Range/Units 08:08 Sodium 139 (136-145) mEq/L Potassium 3.2 L (3.5-5.1) mEq/L Chloride 101 (98-107) mEq/L Carbon Dioxide 29 (23-29) mEq/L BUN 13 (6-20) mg/dL Creatinine 0.73 (0.70-1.30) mg/dL Glucose 118 H (70-105) mg/dL Calcium 9.8 (8.6-10.3) mg/dL - Imaging Additional Studies: Upper GI reviewed Consult Discharge Plan - Plan Referrals: Esteban Garrett MD [Primary Care Provider] - <Beau Arnold - Last Filed: 06/14/18 06:56> Objective Vital Signs - Last 8 Hours Temp Pulse Resp BP Pulse Ox 06/14/18 05:26 98.3 F 73 20 150/102 97 06/13/18 23:05 98.7 F 76 16 128/82 94 Intake and Output 06/13/18 06/13/18 06/14/18 15:59 23:59 07:59 Intake Total 0 / 0 1200 / 1200 Balance 0 / 0 1200 / 1200 Intake: IV Fluids 900 / 900 D5% And 0.45% Nacl 1000 Ml Bag 900 / 900 1,000 ML @ 50 mls/hr IVC .Q20H [facility] Rx#:[id number] Oral 0 / 0 300 / 300 Other: Meal NPO Dinner Percent of Meal Consumed 0% - Labs 06/13/18 08:08 06/13/18 08:08 Diabetes panel 06/13/18 Range/Units 08:08 Sodium 139 (136-145) mEq/L Potassium 3.2 L (3.5-5.1) mEq/L Chloride 101 (98-107) mEq/L Carbon Dioxide 29 (23-29) mEq/L BUN 13 (6-20) mg/dL Creatinine 0.73 (0.70-1.30) mg/dL Glucose 118 H (70-105) mg/dL Calcium 9.8 (8.6-10.3) mg/dL Calcium panel 06/13/18 06/13/18 Range/Units 08:08 08:08 Calcium 9.8 (8.6-10.3) mg/dL Phosphorus 3.8 (2.7-4.5) mg/dL Pituitary panel 06/13/18 Range/Units 08:08 Sodium 139 (136-145) mEq/L Potassium 3.2 L (3.5-5.1) mEq/L Chloride 101 (98-107) mEq/L Carbon Dioxide 29 (23-29) mEq/L BUN 13 (6-20) mg/dL Creatinine 0.73 (0.70-1.30) mg/dL Glucose 118 H (70-105) mg/dL Calcium 9.8 (8.6-10.3) mg/dL Adrenal panel 06/13/18 Range/Units 08:08 Sodium 139 (136-145) mEq/L Potassium 3.2 L (3.5-5.1) mEq/L Chloride 101 (98-107) mEq/L Carbon Dioxide 29 (23-29) mEq/L BUN 13 (6-20) mg/dL Creatinine 0.73 (0.70-1.30) mg/dL Glucose 118 H (70-105) mg/dL Calcium 9.8 (8.6-10.3) mg/dL - Attending Attestation I examined this patient and my medical decision-making was reviewed with the Resident Physician. I agree with the documented findings, disposition and treatment plan as described except to the extent set forth below. The patient is seen and evaluated with rest and the clinical nurse practitioner. The upper GI films are reviewed. The technical result from the Merissa fundoplication was perfect. There is no evidence of esophageal outlet obstruction. The hiatal hernia repair is intact. There is no evidence of abnormality in the stomach. I would recommend dietary consult for post Merissa f undoplication diet counseling. Incisions are clean and intact. We will sign off. Beau Arnold MD FACS
[2018-06-13] MEDS: D5% in 0.45% NACL 1,000 ML IVC SCH (10:43)
--- NOTE | 2018-06-13 11:28 | Anesthesia Evaluation PreOp ---
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) Other Medical History: GERD, Other (odynophagia since Merissa) Anesthesia History: No Prior Anesthetic Complications, Past Anesthesia (Merissa 05-25-18, shoulder, c-fusion, foot sx, hand sx) Alcohol Use: heavy, recent Drug use: opiates, marijuana, prescription drug abuse Medications and Allergies Folic Acid/Multivit-Min/Lutein [Cvs Spectravite Adult Tab Chew] 1 each PO DAILY 05/25/18 [History] Gabapentin [Neurontin] 600 mg PO HS 05/25/18 [History] Nabumetone [Relafen] 500 - 1,000 mg PO BID PRN 05/25/18 [History] Omeprazole [PriLOSEC] 40 mg PO DAILY 05/25/18 [History] Docusate [Colace] 100 mg PO BID PRN #30 capsule 05/26/18 [Rx] OxyCODONE/APAP 5/325 [Percocet 5/325 MG] 1 each PO Q6H PRN 7 Days #28 tablet 05/26/18 [Rx] DiphenhydraMINE [Benadryl] 25 mg PO Q8HR #20 capsule 06/08/18 [Rx] predniSONE [Prednisone] 50 mg PO DAILY #5 tablet 06/08/18 [Rx] Albuterol Sulfate [Proair Hfa] 2 puff IH Q4H PRN 06/10/18 [History] Atenolol [Tenormin] 50 mg PO DAILY 06/10/18 [History] Chlordiazepoxide [Librium] 25 mg PO TID 06/10/18 [History] Lisinopril [Zestril] 20 mg PO DAILY 06/10/18 [History] Allergy/AdvReac Type Severity Reaction Status Date / Time No Known Allergies Allergy Verified 06/10/18 16:40 - Meds/Allergy Pre-op Review Medications Reviewed: Yes Allergies Reviewed: Yes Beta Blockers on Current Med List: No Anesthesia Results - Labs 06/13/18 08:08 06/13/18 08:08 Anesthesia Exam Selected Entries 06/13/18 06:40 Temperature 98.6 F Pulse Rate 73 Respiratory Rate 16 Blood Pressure 152/81 O2 Sat by Pulse Oximetry 96 Oxygen Delivery Method Room Air Weight: 74kg NPO (# of Hours): 8 - HEENT Pupil (Motor): EOMI Mallampati: II Teeth: Normal Oral Opening: Greater than 3 - [employer] SALESPERSON LOC: Oriented [employer] SALESPERSON Motor: Normal RUE, Normal LUE, Normal RLE, Normal LLE, Normal Face [employer] SALESPERSON Sensory: Normal: RUE, LUE, RLE, LLE, Face - Cardiac Rhythm: Regular Murmur: None - Pulmonary Breath Sounds: bilateral Clear Respiratory Effort: Symmetrical Anesthesia Assess/Plan ASA Score: 3 Modified [place] Scale for Level of Consciousness: Cooperative, oriented, and tranquil Anesthetic Plan: General Monitoring Plan: Standard Monitors Recovery Plan: PACU (agrees to GA)
[2018-06-13] MEDS ORDERED: Propofol 500 MG/50 ML INFUS..BTL ONE (12:01)
[2018-06-13] MEDS ORDERED: Lidocaine -MPF 2% 2 ML VIAL ONE (12:01)
[2018-06-13] MEDS: traMADol 50 MG TABLET PO PRN ×2 (12:22→19:20)
--- NOTE | 2018-06-13 13:02 | Anesthesia Evaluation PreOp ---
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) Other Medical History: GERD, Other (odynophagia since Merissa) Anesthesia History: No Prior Anesthetic Complications, Past Anesthesia (Merissa 05-25-18, shoulder, c-fusion, foot sx, hand sx) Alcohol Use: heavy, recent Drug use: opiates, marijuana, prescription drug abuse), HTN, Hyperlipidemia Pulmonary History: Smoker, Pack/yr (2ppd), 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) Other Medical History: GERD, Other (odynophagia since Merissa) Anesthesia History: No Prior Anesthetic Complications, Past Anesthesia (Merissa 05-25-18, shoulder, c-fusion, foot sx, hand sx, EGD) Alcohol Use: heavy, recent Drug use: opiates, marijuana, prescription drug abuse Medications and Allergies Folic Acid/Multivit-Min/Lutein [Cvs Spectravite Adult Tab Chew] 1 each PO DAILY 05/25/18 [History] Gabapentin [Neurontin] 600 mg PO HS 05/25/18 [History] Nabumetone [Relafen] 500 - 1,000 mg PO BID PRN 05/25/18 [History] Omeprazole [PriLOSEC] 40 mg PO DAILY 05/25/18 [History] Docusate [Colace] 100 mg PO BID PRN #30 capsule 05/26/18 [Rx] OxyCODONE/APAP 5/325 [Percocet 5/325 MG] 1 each PO Q6H PRN 7 Days #28 tablet 05/26/18 [Rx] DiphenhydraMINE [Benadryl] 25 mg PO Q8HR #20 capsule 06/08/18 [Rx] predniSONE [Prednisone] 50 mg PO DAILY #5 tablet 06/08/18 [Rx] Albuterol Sulfate [Proair Hfa] 2 puff IH Q4H PRN 06/10/18 [History] Atenolol [Tenormin] 50 mg PO DAILY 06/10/18 [History] Chlordiazepoxide [Librium] 25 mg PO TID 06/10/18 [History] Lisinopril [Zestril] 20 mg PO DAILY 06/10/18 [History] Allergy/AdvReac Type Severity Reaction Status Date / Time No Known Allergies Allergy Verified 06/10/18 16:40 - Meds/Allergy Pre-op Review Medications Reviewed: Yes Allergies Reviewed: Yes Beta Blockers on Current Med List: No Anesthesia Results - Labs 06/13/18 08:08 06/13/18 08:08 Anesthesia Exam Vital Signs/O2 Sat, Most Current Temp Pulse Resp BP Pulse Ox 98.8 F 81 16 147/85 95 06/13/18 11:35 06/13/18 11:35 06/13/18 11:35 06/13/18 11:35 06/13/18 11:35 NPO (# of Hours): > 8 hrs Pain Scale: 0 Pain Scale Used: Numeric (1 - 10) - HEENT Pupil (Motor): Pupils equal, EOMI Mallampati: II Teeth: Normal Oral Opening: Greater than 3 - DESKTOP ENGINEER LOC: Oriented DESKTOP ENGINEER Motor: Normal RUE, Normal LUE, Normal RLE, Normal LLE, Normal Face DESKTOP ENGINEER Sensory: Normal: RUE, LUE, RLE, LLE, Face - Cardiac Rhythm: Regular Murmur: None JVD: No Carotid Bruit: No - Pulmonary Breath Sounds: bilateral Clear Respiratory Effort: Symmetrical Anesthesia Assess/Plan ASA Score: 3 Modified [place] Scale for Level of Consciousness: Cooperative, oriented, and tranquil Anesthetic Plan: MAC Autologous Blood: Yes Monitoring Plan: Standard Monitors Recovery Plan: PACU
--- NOTE | 2018-06-13 17:15 | Electrocardiograph Report ---
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
[2018-06-13] MEDS: Nicotine 21 MG PATCH.TD24 TD SCH (17:37)
[2018-06-13] MEDS: Melatonin 3 MG TABLET PO PRN (23:23)
[2018-06-14] MEDS: D5% in 0.45% NACL 1,000 ML IVC SCH ×2 (01:52→22:00)
[2018-06-14] MEDS: *HR* Heparin 5,000 UNIT/ML VIAL SQ SCH ×2 (05:07→17:51)
[2018-06-14] MEDS: traMADol 50 MG TABLET PO PRN ×4 (05:12→23:30)
[2018-06-14] MEDS: Fluconazole 40 MG/ML UDC PO SCH (08:04)
[2018-06-14] MEDS: Thiamine (B-1) 100 MG TABLET PO SCH (08:05)
[2018-06-14] MEDS: Nystatin SUSP 5 ML UD.LIQ PO SCH ×4 (08:05→21:24)
[2018-06-14] MEDS: Nicotine 21 MG PATCH.TD24 TD SCH (08:05)
[2018-06-14] MEDS: MethylPREDNISolone 40 MG/ML VIAL IVP SCH (08:05)
[2018-06-14] MEDS: Pantoprazole 40 MG VIAL IVP SCH (08:05)
[2018-06-14 09:12] LABS: BUN/Creatinine Ratio 20 (6-26); Blood Urea Nitrogen 14 mg/dL (6-20); Calcium 9.2 mg/dL (8.6-10.3); Carbon Dioxide 26 mEq/L (23-29); Chloride 101 mEq/L (98-107); Glucose 128 mg/dL (70-105); Osmolality,Calculated 284 (280-300); Potassium 3.4 mEq/L (3.5-5.1); Sodium 136 mEq/L (136-145); eGFR For Non-African Americans > 60 (> 60)
[2018-06-14 09:43] LABS: Eosinophils # 0.1 K/mcL (0.0-0.6); Eosinophils % 1.5 %; Hematocrit 34.5 % (37.5-50.1); Hemoglobin 12.3 g/dL (12.9-16.9); Immature Granulocytes % 0.3 % (0-4); Lymphocytes # 1.9 K/mcL (0.6-4.6); Lymphocytes % 25.9 %; Mean Corpuscular HGB Conc 35.7 g/dL (31.6-35.5); Mean Corpuscular Hemoglobin 34.1 pg (28.0-33.3); Mean Corpuscular Volume 95.6 fL (83.0-100.0); Monocytes # 0.4 K/mcL (0.0-1.3); Monocytes % 5.3 %; Neutrophils # 4.8 K/mcL (1.6-8.9); Platelet Count 193 K/mcL (140-400); Red Blood Count 3.61 M/mcL (4.19-5.50); Red Cell Distribution Width 11.5 % (11.5-14.5)
--- NOTE | 2018-06-14 13:15 | Internal Med Progress Note ---
Hospitalist Progress Note - Encounter Date of Encounter: 06/14/18 Time of Encounter: 13:10 - Subjective Interval History: Patient seen and examined at bedside. Currently he is tolerating a clear liquid diet has multiple complaints mostly complains of musculoskeletal pain. Requesting pain medication - Exam Vitals: Temp Pulse Resp BP Pulse Ox 98.3 F 75 20 123/78 97 06/14/18 11:21 06/14/18 11:21 06/14/18 11:21 06/14/18 11:21 06/14/18 11:21 Exam: General: Alert and oriented x4. still with in some distress due to itching. Skin: urticarial rash almost resolved. HEENT: No periorbital edema, EOM, pupils equal, round and reactive. Cardiovascular: RRR, Normal S1 & S2, no rubs, murmurs or gallops. Lungs: CTA bilaterally, no wheezes or crackles. Abdomen: Soft, non-tender, no rigidity. NABS in all 4 quadrants Extremities: no edema, strength is 5 out of 5 in the upper and lower extremity. Neurological: Normal cognition. no resting tremors seen - Assessment and Plan (1) Adverse reaction to drug Current Visit: No Status: Acute Assessment and Plan: Continue Solu-Medrol 40 mg IV daily. 06/14 Does not appear to have any rash at this time-states that symptoms of uticaria improved- no redness or hives noted will continue with Solu-Medrol as well as Benadryl and hydrocortisone cream (2) Alcohol withdrawal Current Visit: Yes Status: Resolved Assessment and Plan: Patient with minimal tremors. Plan start titrating off CIWA protocol on Lorazepam and Diazepam PRN continue carvedilol 3.125mg/PO BID 06/14 Nature murmurs noted at this time Titrating off CIWA protocol Continue carvedilol 3.125 mg by mouth twice a day Continue with thiamine (3) Oral thrush Current Visit: Yes Status: Acute Assessment and Plan: Patient on fluconazole 200mg/PO daily. plus nystatin mouth wash. 06/14 Patient underwent EGD per GI-no evidence of dario-continue with Diflucan 100 mg by mouth daily for 3 days total last dose for today Continue with nystatin swish and swallow (4) Hypertension Current Visit: Yes Status: Chronic Assessment and Plan: BP well controlled. Continue Carvedilol 3.125mg/PO BID. 06/14 Blood pressure stable at this time Continue with carvedilol 3.125 mg by mouth twice a day (5) Odynophagia Current Visit: Yes Status: Acute Assessment and Plan: Possible due to dario esophagitis r/o structural esophagelal abnormality. patient continues to report painful swallowing and not being able to tolerate PO diet. GI series: IMPRESSION: 1. Prominent gastric rugal folds, an indeterminate finding that could be seen with gastritis, Mustapha-Gutierres syndrome, malignancy, and other etiologies. Consider endoscopy. 2. Mild spontaneous gastroesophageal reflux with no hiatal herniation. 3. Normal fluoroscopic appearance of the esophagus and duodenum. Plan Patient scheduled for EGD. conitue fluconazole 200mg/PO daily On nystatin mouth wash. Patient with oral thrush on presentation On D5/0.45% NS @50mls/hr for maintenance plus ensure Pantoprazole 40mg/IV daily Ondansetron 4mg/IV Q4HR PRN for nausea and vomiting 06/14 S/ P Niesen-fundoplication 05/25/18 Underwent EGD-does show some esophagitis -recommending discontinuing consumption of alcohol No evidence of dario continue Diflucan by mouth daily for 3 days total- last dose today Tolerating clear liquids we will advance diet as tolerated- (6) Hypokalemia Current Visit: Yes Status: Acute Assessment and Plan: 3.4 today we will replace and monitor - Time Spent with Patient Total time spent is greater than 50% in coordination of care (as documented) at patient's floor/unit and/or counseling patient: Internal Medicine: Result - Labs CBC & Chem 7: 06/14/18 09:25 06/14/18 08:41 Labs: Short CBC 06/14/18 Range/Units 09:25 WBC 7.2 (4.3-11.1) K/mcL Hgb 12.3 L (12.9-16.9) g/dL Hct 34.5 L (37.5-50.1) % Plt Count 193 (140-400) K/mcL Neutrophils # 4.8 (1.6-8.9) K/mcL BMP 06/14/18 08:41 Sodium 136 Potassium 3.4 L Chloride 101 Carbon Dioxide 26 BUN 14 Creatinine 0.69 L Glucose 128 H Calcium 9.2 - ABG Interpretation ABG results: PT/INR, D-dimer PT 11.1 Seconds (9.4-12.1) 06/10/18 14:55 Consult Discharge Plan - Plan Referrals: Beau Arnold MD [Partnered Physician] - 06/16/18 11:35 am Joshua Wiggins MD [Partnered Physician] - Esteban Garrett MD [Primary Care Provider] - (1) Adverse reaction to drug Qualifiers: Encounter type: initial encounter Qualified Code(s): T50.905A - Adverse effect of unspecified drugs, medicaments and biological substances, initial encounter (2) Alcohol withdrawal Qualifiers: Complication of substance-induced condition: with perceptual disturbance Qualified Code(s): 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
[2018-06-14] MEDS: Melatonin 3 MG TABLET PO PRN (21:24)
[2018-06-15] MEDS: *HR* LORazepam 2 MG/ML VIAL IVP PRN (03:30)
[2018-06-15 05:18] LABS: Basophils % 0.1 %; Eosinophils # 0.1 K/mcL (0.0-0.6); Eosinophils % 1.1 %; Hematocrit 34.5 % (37.5-50.1); Hemoglobin 12.3 g/dL (12.9-16.9); Immature Granulocytes % 0.3 % (0-4); Lymphocytes # 2.7 K/mcL (0.6-4.6); Lymphocytes % 36.2 %; Mean Corpuscular HGB Conc 35.7 g/dL (31.6-35.5); Mean Corpuscular Hemoglobin 34.5 pg (28.0-33.3); Mean Corpuscular Volume 96.6 fL (83.0-100.0); Mean Platelet Volume 10.6 fL (9.4-12.4); Monocytes # 0.6 K/mcL (0.0-1.3); Neutrophils # 4.1 K/mcL (1.6-8.9); Platelet Count 211 K/mcL (140-400); Red Blood Count 3.57 M/mcL (4.19-5.50); Red Cell Distribution Width 11.5 % (11.5-14.5); Segmented Neutrophils % 54.3 %
[2018-06-15 05:31] LABS: BUN/Creatinine Ratio 15 (6-26); Blood Urea Nitrogen 10 mg/dL (6-20); Calcium 9.4 mg/dL (8.6-10.3); Carbon Dioxide 29 mEq/L (23-29); Chloride 100 mEq/L (98-107); Glucose 102 mg/dL (70-105); Osmolality,Calculated 283 (280-300); Potassium 3.4 mEq/L (3.5-5.1); Sodium 137 mEq/L (136-145); eGFR For Non-African Americans > 60 (> 60)
[2018-06-15] MEDS: *HR* Heparin 5,000 UNIT/ML VIAL SQ SCH (05:33)
[2018-06-15] MEDS: Pantoprazole 40 MG VIAL IVP SCH (07:54)
[2018-06-15] MEDS: Nicotine 21 MG PATCH.TD24 TD SCH (07:54)
[2018-06-15] MEDS: Thiamine (B-1) 100 MG TABLET PO SCH (07:54)
[2018-06-15] MEDS: Nystatin SUSP 5 ML UD.LIQ PO SCH ×2 (07:54→13:10)
[2018-06-15] MEDS ORDERED: Potassium Chloride 20 MEQ, Lidocaine 1% 2 ML in D5% in Water 250 ML IVPB ONE (08:05)
[2018-06-15] MEDS: traMADol 50 MG TABLET PO PRN ×2 (08:20→15:42)
[2018-06-15 08:25] LABS: Magnesium 1.8 mg/dL (1.6-2.6)
[2018-06-15] MEDS ORDERED: PrednisoLONE Oral Soln 15 MG/5 ML UDC PO SCH (09:00)
--- NOTE | 2018-06-15 14:50 | Discharge Summary ---
- NOTES TO OUTPATIENT PROVIDER Notes to Outpatient Provider: Patient is follow up with Dr Arnold S/P Merissa fundoplication 05/25/18 -Merissa diet, Clear Ensure po TID. Had oral thrush - completed diflucan -nystatin rinse Orders not resulted at time of discharge: Pending orders 06/10/18 17:54 Culture,Blood [BC] Stat 06/11/18 14:55 Drug Screen, Urine [UCHEM] NOW 06/14/18 09:54 Magnesium Routine 06/16/18 04:00 CBC [Complete Blood Count] [HEME] AM 0400 Chem 7 [Basic Metabolic Panel] AM 0400 06/17/18 04:00 CBC [Complete Blood Count] [HEME] AM 0400 Chem 7 [Basic Metabolic Panel] AM 0400 Date of Encounter: 06/15/18 Time of Encounter: 14:44 - Discharge Diagnosis (1) Adverse reaction to drug Priority: Secondary Status: Acute Qualifiers: Encounter type: initial encounter Qualified Code(s): T50.905A - Adverse effect of unspecified drugs, medicaments and biological substances, initial encounter (2) Alcohol withdrawal Priority: Secondary Status: Resolved Qualifiers: Complication of substance-induced condition: with perceptual disturbance Qualified Code(s): 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 Huang is a 52 year old male who presented to [facility] ED for severe itching U to carry a rash difficulty swallowing and unable to take medication. The patient was started on tizanadine for back and neck pain and spasms 5 days later he developed a rash. He did stop taking the medication. Reports that he did use Benadryl without any relief of symptoms. He was seen in the ED approximately 3 days prior to this presentation and was given Benadryl IV prednisone metoprolol Librium for what was thought to be DTs. He returned with similar symptoms. He does have a long history of alcohol use as well as opioids for chronic pain. His last drink was 4 days prior to presentation. He normally drinks a 12 pack of beer daily and uses oxycodone for chronic pain. He did have a Merissa fundoplication completed on May [address] Arnold. He states he lifted heavy packages as home 6 days prior to presentation and his abdomen has hurt since that time. -He was admitted for further workup and evaluation. CT of abdomen shows postsurgical changes from fundoplication no acute abnormality within the chest abdomen or pelvis He was placed on Sewall protocol as well as fluconazole for oral thrush GI was consulted for possible Dario esophagitis-he underwent EGD per GI was found to have esophagitis no evidence of Dario he completed 3 days of fluconazole as well as nystatin swish and swallow. He was evaluated by Dr. Arnold surgery-no surgical intervention at this time continue with GI recommendations as well as supplements with ensure clear 3 times a day. Patient was encouraged to eat started with clear liquids has advanced to full liquid diet has been tolerating full liquid diet today. He has been passing gas has bowel sounds abdomen is nontender. No nausea or vomiting no abdominal pain Hives have improved he does have some itching however this is controlled with Benadryl. I advised patient to stop drinking and offered patient information co yang [facility] and other rehabilitation resources and mental health counseling. food and nutrition services assistant was consulted and did speak with the patient at length and provided information. Also encouraged patient to stop smoking interested in nicotine patch which I will discharge the patient. Advised patient to continue with Merissa diet. Patient requesting prescription for liquid Benadryl advised patient this can be purchased [id number] however patient prefers a prescription advised patient not to exceed more than 3 times a day and not to take with alcohol patient verbalized understanding. During admission patient's potassium was low this was replaced-patient will follow up as outpatient and have lab work checked on Tuesday. Patient is hemodynamically stable and ready for discharge. - Time Spent with Patient Total time spent providing and/or coordinating discharge services: - Discharge Medications Prescriptions: Carvedilol [Coreg] 3.125 mg PO BIDWM #60 tablet DiphenhydraMINE [Benadryl] 25 mg PO Q6H PRN #1 bottle PRN Reason: Itching Hydrocortisone 1% CREAM [Cortaid] 1 appl TP BID PRN #1 bottle PRN Reason: Itching Nicotine Patch [Nicoderm] 21 mg TD DAILY #24 patch.td24 Home Medications: Folic Acid/Multivit-Min/Lutein [[facility] Spectravite Adult Tab Chew] 1 each PO DAILY 05/25/18 [History] Gabapentin [Neurontin] 600 mg PO HS 05/25/18 [History] Nabumetone [Relafen] 500 - 1,000 mg PO BID PRN 05/25/18 [History] Omeprazole [PriLOSEC] 40 mg PO DAILY 05/25/18 [History] Docusate [Colace] 100 mg PO BID PRN #30 capsule 05/26/18 [Rx] OxyCODONE/APAP 5/325 [Percocet 5/325 MG] 1 each PO Q6H PRN 7 Days #28 tablet 05/26/18 [Rx] predniSONE [Prednisone] 50 mg PO DAILY #5 tablet 06/08/18 [Rx] Albuterol Sulfate [Proair Hfa] 2 puff IH Q4H PRN 06/10/18 [History] Chlordiazepoxide [Librium] 25 mg PO TID 06/10/18 [History] Carvedilol [Coreg] 3.125 mg PO BIDWM #60 tablet 06/15/18 [Rx] DiphenhydraMINE [Benadryl] 25 mg PO Q6H PRN #1 bottle 06/15/18 [Rx] Hydrocortisone 1% CREAM [Cortaid] 1 appl TP BID PRN #1 bottle 06/15/18 [Rx] Nicotine Patch [Nicoderm] 21 mg TD DAILY #24 patch.td24 06/15/18 [Rx] Ondansetron [Zofran] 4 mg IVP Q8HR PRN vial 06/15/18 [Rx] Allergies/Adverse Reactions: Allergy/AdvReac Type Severity Reaction Status Date / Time No Known Allergies Allergy Verified 06/10/18 16:40 Date of admission: 06/10/18 16:23 Primary care physician: Esteban Garrett MD Consults: 06/11/18 13:29 Consult to Gastroenterology [CONS] Routine Consulting Provider: Gastroenterology Sana Reason for Consult: Oral thrush. Odinophagia, r/o dario esophagitis Time Notified: 13:30 Call Completed: No 06/15/18 10:02 Consult to Delivery Room Supervisor [CONS] Routine Reason for SW Consult: alcoholic resources 06/15/18 14:04 consult to air drier [Consult to Nutrition] [CONS] Routine Comment: Consulting Provider: NUTRITION Reason for Dietary Consult: PO Supplementation Discharging clinician: Cathi Nichols Anticipated date of discharge: 06/15/18 - Constitutional Vitals: Temp Pulse Resp BP Pulse Ox 98.1 F 73 16 129/84 94 06/15/18 11:08 06/15/18 11:08 06/15/18 11:08 06/15/18 11:08 06/15/18 11:08 General appearance: Present: mild distress, A&O X 3, answers questions appropriately Exam: General: Alert and oriented x4. still with in some distress due to itching. Skin: urticarial rash almost resolved. HEENT: No periorbital edema, EOM, pupils equal, round and reactive. Cardiovascular: RRR, Normal S1 & S2, no rubs, murmurs or gallops. Lungs: CTA bilaterally, no wheezes or crackles. Abdomen: Soft, non-tender, no rigidity. NABS in all 4 quadrants Extremities: no edema, strength is 5 out of 5 in the upper and lower extremity. Neurological: Normal cognition. no resting tremors seen - Patient Status Disposition: Home, Self-Care Condition: Undetermined Functional capacity at discharge: independent ambulation Overall status at discharge: patient is back to baseline - Ambulatory Orders Ambulatory Orders: Basic Metabolic Panel [CHEM] Time Frame: 06/19/18, Facility: [facility], Location: LAB [facility] - Discharge Instructions Follow Up With: Beau Arnold MD [Partnered Physician] - 06/16/18 11:35 am Joshua Wiggins MD [Partnered Physician] - Esteban Garrett MD [Primary Care Provider] - 06/21/18 4:00 pm (Appointment with Susana Holloway CNP)
[2018-06-15 15:17] VITALS: BP 111/75
== END 2018-06-15 16:35 | disposition home or self-care (01) ==
LOC: EMEROOARM 14:24 → 3BNU 14:24
PROVIDERS: ADMIT Internal Medicine; ATTEND Internal Medicine